=== PATIENT | male | born 1955 | race Caucasian/White ===

== ENCOUNTER 2020-06-26 10:38 | Outpatient (REF) | payer OTHER, SELFPAY | END 2020-06-26 10:39 | disposition home or self-care (01) | LOC: HO.LAB 10:38 | PROVIDERS: PCP Internal Medicine Medical Oncology; Visit Provider Internal Medicine | DX: Z20.822 Contact with and (suspected) exposure to COVID-19 (principal) | CPT/HCPCS: 36415; C9803; U0003 ==

== ENCOUNTER 2022-06-28 17:06 | Outpatient (REF) | payer OTHER, SELFPAY | END 2022-06-28 17:07 | disposition home or self-care (01) | LOC: HO.LNP 17:06 | PROVIDERS: Visit Provider Internal Medicine Medical Oncology | DX: L02.216 Cutaneous abscess of umbilicus (principal) | CPT/HCPCS: 87070; 87205 ==

== ENCOUNTER 2024-08-28 11:15 | Outpatient (REF) | payer OTHER, SELFPAY | END 2024-08-28 11:16 | disposition home or self-care (01) | LOC: HO.LNP 11:15 | PROVIDERS: Visit Provider Internal Medicine Medical Oncology | DX: R07.0 Pain in throat (principal) | CPT/HCPCS: 87070; 87147 ==

== ENCOUNTER 2024-12-18 11:45 | Outpatient (REF) | payer OTHER, SELFPAY ==
--- OUTSIDE RECORDS SUMMARY | 2024-12-18 07:00 | XMS_ITS ---
Author Organization Rusty Shaw III, MD Address [address] [address] Care Team Providers Care Insulation Batting Machine Operator Name Role Phone Rusty Shaw Primary Care Provider [phone] Allergies Allergen (clinical drug ingredient) Drug/Non Drug Allergy documented on EMR Reaction Allergy Type Onset Date Status Penicillin rash Drug Allergy Active Septra rash Drug Allergy Active REASON FOR VISIT growth on left side groin x 4 days Medications Medication SIG (Take, Route, Frequency, Duration) Notes Start Date End Date Status Lisinopril 40 MG TAKE 1 TABLET BY ZAINAB TH DAILY Active Clobetasol Propionate 0.05 % 1 application Externally Twice a day 04/19/2024 Active Atenolol 100 MG 1 tablet Orally Once a day 07/12/2024 Active hydrALAZINE HCl 10 MG 1 tablet with food Orally mornings 06/28/2024 Active Valsartan 80 MG 1 tablet Orally Once a day 08/28/2024 Active Doxycycline Hyclate 100 MG 1 capsule Ora lly twice a day for 10 days 12/18/2024 12/28/2024 Active Simvastatin 20 MG TAKE 1 TABLET BY ZAINAB TH DAILY IN THE EVENING Active Tart Li Advanced - Orally Active MegaRed [place]-3 Krill Oil 500 MG Orally Active Triamcinolone Acetonide 0.1 % 1 application Externally Twice a day 04/17/2023 Active Social History Tobacco Use: Social History Observation Description Date Details (start date - stop date) Never Smoker NA - NA Sex Assigned At : Social History Observation Description Sex Assigned At Male Tobacco Use/Smoking Question Answer Notes Patient is a nonsmoker Additional Findings: Tobacco Non-User Aggressive non-smoker Vital Signs Temperature 99.0 degrees Fahrenheit 12/19/19 25 Blood pressure systolic 170 mm Hg 12/19/19 25 Blood pressure diastolic 80 mm Hg 025 Heart Rate 56 /min 12/18/2024 Height 70 in 12/18/2024 Weight 213 lbs 12/18/2024 BMI 30.56 kg/m2 12/18/2024 Encounters Encounter Location Date Provider Diagnosis Rusty Shaw III, MD [address] [place] [address] [address] [place] [address] 12/18/2024 Rusty Shaw Mixed hyperlipidemia E78.2 and Abscess of groin, left L02.214 Assessments Encounter Date Diagnosis (ICD Code) Assessment Notes Treat ment Notes Treatment Clinical Notes 12/18/2024 Mixed hyperlipidemia (ICD-10 - E78.2) 12/18/2024 Abscess of groin, left (ICD-10 - L02.214) Plan Of Treatment Medication Medication Name Sig Start Date Stop Date Notes Lisinopril 40 MG TAKE 1 TABLET BY ZAINAB TH DAILY Clobetasol Propionate 0.05 % 1 applicati on Externally Twice a day 04/19/2024 Atenolol 100 MG 1 tablet Orally Once a day 07/12/2024 hydrALAZINE HCl 10 MG 1 tablet with food Orally mornings 06/28/2024 Valsartan 80 MG 1 tablet Orally Once a day 08/28/2024 Doxycycline Hyclate 100 MG 1 capsule Ora lly twice a day for 10 days 12/18/2024 12/28/2024 Simvastatin 20 MG TAKE 1 TABLET BY ZAINAB TH DAILY IN THE EVENING Tart Li Advanced - Orally MegaRed [place]-3 Krill Oil 50 0 MG Orally Triamcinolone Acetonide 0.1 % 1 applicat ion Externally Twice a day 04/17/2023 Pending Test Test Name Order Date Routine Culture 12/18/2024 Next Appt Details Follow Up: Monday, Reason: O V Provider Name:Rusty Shaw, 12/23/2024 01:15:00 PM, [address] [place] [address] [address], [place], [address], Provider Name:Rusty Shaw, 04/24/2025 10:00:00 AM, [address] [place] [address] [address], [facility] [place], [address], Progress Notes * Fareed ARMSTRONGDOB:1955 (69 yo M)Acc No.[id number]:12/18/2024 Progress Notes Patient: Fareed GARCIA Provider: Marshall Shaw MD :1955 A ge:69 Y S ex:Male Date:12/18/2024 Address:[address] [place] [address], [place], [id number] Subjective: * Chief Complaints: * 1 . Growth on left side groin x 4 days. * HPI: C OVID-19 Screening: Questions H ave you had any new onset fever, chills, cough, congestion, sore throat, shortness of breath, muscle aches? N o * ROS: G eneral/Constitutional: pain o nly normal aches and pains. C hills d enies.?Fatigue a dmits. F ever d enies. E NT: Decreased hearing d enies. R espiratory: Cough d enies. C ardiovascular: Chest pain with exertion d enies. D yspnea on exertion?denies. S hortness of breath d enies. G astrointestinal: Constipation d enies. D ecreased appetite d enies.?Diarrhea d enies. H eartburn d enies. N ausea d enies. R ectal bleeding?denies. V omiting d enies. H ematology: bruising d enies. p etechiae d enies. S wollen glands n one have been noted. G enitourinary: Frequent urination d enies. M usculoskeletal: Muscle aches d enies. P ainful joints d enies. S ciatica d enies. W eakness d enies. S kin: Itching d enies. R eren d enies. S kin lesion(s)?denies. N eurologic: Difficulty speaking d enies. D izziness d enies.?Headache d enies. L ow back pain d enies. P sychiatric: Depressed mood d enies. * Medical History: P ersonal history of pulmonary embolism, Arthritis of knee, gout, right foot April 2017, Hyperlipidemia, Hypertension, Overweight, Cataracts, Enlarged right testicle, ultrasound, The patient had a colonoscopy at the end of the previous year. He has been diagnosed with type 2 diabetes. He has been seeing a truck dispatcher for skin lesions.. * Surgical History: c olonoscopy, [facility], Dr. Carrillo 1999, colonoscopy, [facility], Dr. Santos 2015, Cataract surgery 07/04,08/04, No history . * Hospitalization/Major Diagno stic Procedure: N o history . * Family History: F ather: alive 94 yrs, Diabetes mellitus, diagnosed with DM. M other: 83 yrs, Advanced dementia, hyperthyroidism. C jayjay: alive. S on(s): alive. D aj(s): alive. Siblings: . 3 brother(s) . 1 son(s) , 2 daughter(s) - healthy. . He has 3 children who are alive and well. He has one healthy grandchild. He is not aware of any family history of mental illness. He is not aware of any family history of edition her substance abuse disorders. His brother Kyle November 2022 of pancreatic cancer. * Social History: T obacco Use: T obacco Use/Smoking P penny is a n onsmoker A dditional Findings: Tobacco Non-User A ggressive non-smoker H elias has been to [facility] for 35 years. They have 3 healthy children and 4 grandchildren. 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 The patient is still working and has been at the same job since 1999. He has reduced his red meat consumption. He lives with his and daughter. * Medications: T aking Simvastatin 20 MG Tablet TAKE 1 TABLET BY MOUTH DAILY IN THE EVENING , Taking Tart Li Advanced - Capsule Orally , Taking MegaRed [place]-3 Krill Oil 500 MG Capsule Orally , Taking Triamcinolone Acetonide 0.1 % Cream 1 application Externally Twice a day , Taking Clobetasol Propionate 0.05 % Cream 1 application Externally Twice a day , Taking Atenolol 100 MG Tablet 1 tablet Orally Once a day , Taking hydrALAZINE HCl 10 MG Tablet 1 tablet with food Orally mornings , Taking Valsartan 80 MG Tablet 1 tablet Orally Once a day , Taking Lisinopril 40 MG Tablet TAKE 1 TABLET BY MOUTH DAILY , Medication List reviewed and reconciled with the patient * Allergies: S eptra: rash, Penicillin: rash. Objective: * Vitals: H t: 70, Wt:213, BMI:30.56, BP:170/80, HR:56, Temp:99.0, Ht-cm: 177.8, Wt-k.62. * Examination: G eneral Examination: GENERAL APPEARANCE: p leasant, well nourished, well developed, in no acute distress, calm and relaxed. HEAD: a traumatic, normocephalic. EYES: e griselda, perrla, anicteric, conjugate. EARS: n ormal. NOSE: s eptum intact. ORAL CAVITY: n ormal, unremarkable. NECK/THYROID: n o jugular venous distention, no carotid bruit, thyroid normal. LYMPH NODES: n o enlarged lymph nodes,spleen normal. SKIN: n o suspicious lesions, anicteric. HEART: n o clicks, gallops, murmurs, or rubs, regular rhythm, S1, S2 normal, no s3, or vascular bruits. LUNGS: c lear to auscultation . BREASTS: no masses palpable bilaterally. ABDOMEN: b owel sounds normal, no ascites, no organomegaly, no mass. RECTAL EXAM: n ot examined. MUSCULOSKELETAL: e xtremities unremarkable, no clubbing, cyanosis or edema. PERIPHERAL PULSES: n ormal. NEUROLOGIC: a lert and oriented, cranial nerves 2-12 grossly intact, deep tendon reflexes 2+ symmetrical, motor strength normal upper and lower extremities, sensory exam intact. PSYCH: a lert, oriented. Assessment: * Assessment: 1. M ixed hyperlipidemia - E78.2 2 . A bscess of groin, left - L02.214 Plan: * Treatment: 2. A bscess of groin, left L AB: Routine Culture * Preventive Medicine: Counseling: C are goal follow-up plan: Counseling for abnormal BMI given Y es Above Normal BMI Follow-up D ietary management education, guidance, and counseling, Dietary needs education, Exercise promotion: strength training, Exercise promotion: stretching, Feeding regime, Giving encouragement to exercise, Lifestyle education regarding diet, Nutrition / feeding management, Nutrition therapy, Prescribed activity/exercise education, Prescribed diet education, Prescribed dietary intake, Special diet education, Weight monitoring , Intervention, Order not done: Medical or Other reason not done * Follow Up: M on (Reason: OV) * Images: * The named appointment provid er may or may not be the originator of this progress note, and it is not deemed complete until electronically signed by the appointment provider. Sign off status: Pending * Provider: Marshall Shaw MD Date: 12/18/2024 Generated for Joni davi/Justin/Axelsmitting on: 12/18/2024 02:12 PM EDT History and Physical Notes * HPI (History of Present Illness) Category Sub-Category Detail Notes COVID-19 Screening Questions Have you had any new onset fever, chills, cough, congestion, sore throat, shortness of breath, muscle aches?: No Examination Category Sub-Category Detail Notes General Examination GENERAL APPEARANCE: pleasant , well nourished, well developed, in no acute distress, calm and relaxed HEAD: atraumatic, normocep halic EYES: eomi, perrla, anicte ara, conjugate EARS: normal NOSE: septum intact NECK/THYROID: no jugular venous di stention, no carotid bruit, thyroid normal HEART: no clicks, gallops, murmurs, or rubs, regular rhythm, S1, S2 normal, no s3, or vascular bruits LUNGS: clear to auscultatio n ABDOMEN: bowel sounds normal, no ascites, no organomegaly, no mass NEUROLOGIC: alert and oriented, cranial nerves 2-12 grossly intact, deep tendon reflexes 2+ symmetrical, motor strength normal upper and lower extremities, sensory exam intact SKIN: no suspicious lesion s, anicteric PERIPHERAL PULSES: normal BREASTS: no masses palpable b ilaterally MUSCULOSKELETAL: extremities unremark able, no clubbing, cyanosis or edema LYMPH NODES: no enlarged lymph no diana,spleen normal RECTAL EXAM: not examined PSYCH: alert, oriented ORAL CAVITY: normal, unremarkable
== END 2024-12-18 11:46 | disposition home or self-care (01) ==
LOC: HO.LNP 11:45
PROVIDERS: Visit Provider Internal Medicine Medical Oncology
DX: L02.214 Cutaneous abscess of groin (principal)
CPT/HCPCS: 87070; 87147; 87205

== ENCOUNTER 2024-12-19 06:57 | Inpatient (IN) | payer OTHER, SELFPAY ==
--- OUTSIDE RECORDS SUMMARY | 2024-12-18 07:00 | XMS_ITS ---
Author Organization Rusty Shaw III, MD Address [address] [address] Care Team Providers Care Area Forester Name Role Phone Rusty Shaw Primary Care Provider Allergies Allergen (clinical drug ingredient) Drug/Non Drug [...] Tart Li Advanced - Orally Active MegaRed Miller-3 Krill Oil 500 MG Orally Active Triamcinolone [...] Date Provider Diagnosis Rusty Shaw III, MD [address] [place] [address] [address] [place] [id number] 12/18/2024 Rusty Shaw Mixed hyperlipidemia E78.2 and [...] EVENING Tart Li Advanced - Orally MegaRed Miller-3 Krill Oil 50 0 MG Orally Triamcinolone Acetonide 0.1 % 1 applicat ion Externally Twice a day 04/17/2023 Pending Test Test Name Order Date Routine Culture 12/18/2024 Next Appt Details Follow Up: Monday, Reason: O V Provider Name:Rusty Shaw, 12/23/2024 01:15:00 PM, [address] [place] [address] [address], [place], [id number], Provider Name:Rusty Shaw, 04/24/2025 10:00:00 AM, [address] [place] [address] [address], [facility] [place], [phone], Progress Notes * Fareed ARMSTRONGDOB:1955 (69 yo M)Acc No.[id number]:12/18/2024 Progress Notes Patient: Fareed GARCIA Provider: Marshall Shaw MD :1955 A ge:69 Y S ex:Male Date:12/18/2024 Address:[address] [place] [address], [place], [id number] Subjective: * Chief Complaints: * 1 . [...] 2 diabetes. He has been seeing a maintenance team leader for skin lesions.. * Surgical History: c olonoscopy, [facility], Dr. Carrillo 1999, colonoscopy, [facility], Dr. Santos 2015, Cataract surgery 07/04,08/04, [...] ggressive non-smoker H elias has been to [facility] for 35 years. They have 3 healthy children and 4 grandchildren. 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 The patient is still working and has been at the same job since 1999. He has reduced his red meat consumption. He lives with his and daughter. * Medications: T aking Simvastatin 20 MG Tablet TAKE 1 TABLET BY MOUTH DAILY IN THE EVENING , Taking Tart Li Advanced - Capsule Orally , Taking MegaRed Miller-3 Krill Oil 500 MG Capsule Orally , [...] Date: 12/18/2024 Generated for Joni davi/Justin/Axelsmitting on: 12/19/2024 08:00 AM EDT History and Physical Notes * HPI [...]
--- NOTE | ~2024-12-19 | CT_ITS ---
EXAMINATION: CT ABDOMEN PELVIS WITH IV CONTRAST HISTORY: left groin induration, c/f possible Vijay's COMPARISON: There are no prior studies for available comparison. TECHNIQUE: CT scan of the abdomen and pelvis was performed following administration of 85 mL Omnipaque 350 using standard departmental protocol. Coronal and sagittal reformatted images were generated and reviewed. Oral contrast material was not administered at the request of the referring physician. This CT exam was performed with one or more of the following dose reduction techniques: automated exposure control, adjustment of the mA and/or kV according to patient size, use of iterative reconstruction technique. DLP: 1184 mGy-cm FINDINGS: LOWER CHEST: The visualized lung bases are clear. There is no pleural effusion. CARDIOVASCULATURE: The heart is normal in size. There is no pericardial effusion. LIVER: The liver is normal in size and contour. No liver mass is identified. The hepatic and portal veins are patent. GALLBLADDER / BILE DUCTS: The gallbladder is unremarkable. There is no intra or extrahepatic biliary ductal dilatation. SPLEEN: The spleen is normal in size. No focal splenic lesion is identified. PANCREAS: The pancreas is unremarkable in appearance. ADRENAL GLANDS: Within normal limits. KIDNEYS/RETROPERITONEUM: No renal calculi are identified. There is no hydronephrosis. No renal masses are identified. LYMPH NODES: There is a 9 mm para-aortic lymph node. There are lymph nodes in the left inguinal region which are more notable for number than size. VASCULATURE: The abdominal aorta is normal in caliber. MESENTERY/PERITONEUM: No free fluid. No masses. There is no free intraperitoneal gas. STOMACH: The stomach is collapsed, limiting evaluation. SMALL BOWEL: The small bowel is normal in caliber. COLON: There is diverticulosis of the descending and sigmoid colon, without evidence of diverticulitis. APPENDIX: Normal. URINARY BLADDER/PELVIC ORGANS: The urinary bladder is unremarkable. The prostate is normal in size. BONES / SOFT TISSUES: There is marked infiltration of the subcutaneous fat of the anteromedial left thigh with associated skin thickening, consistent with cellulitis. There is no associated loculated fluid collection or soft tissue gas. There are surgical clips in the scrotum. No induration of the scrotal fat is seen. There is no soft tissue gas within the scrotum. CT/CT abdomen pelvis w IV con IMPRESSION: Findings consistent with cellulitis involving the anteromedial proximal left thigh. No associated loculated fluid collection or soft tissue gas. Electronically signed by: Rusty Nation MD 12/19/2024 10:07 AM EDT
[2024-12-19 07:01] VITALS: BP 143/56; PULSE 59; RESP 20; TEMP 36.6; O2SAT 99; BMI 29.7
[2024-12-19 07:41] VITALS: BP 137/65; PULSE 60; RESP 16; O2SAT 96
--- NOTE | 2024-12-19 08:04 | ED.GENADULT ---
HPI - General Adult General Chief complaint: Skin/Abscess/Foreign Body Stated complaint: sent by Rusty Shaw? has a cyst on left leg Time Seen by Provider: 12/19/24 08:04 Source: patient, family (), RN notes reviewed and old records reviewed Mode of arrival: ambulatory Limitations: no limitations History of Present Illness ED Provider: Geoff [facility] narrative: Patient is a 69-year-old male presenting to the emergency department with complaint of cyst/abscess to left upper leg/groin area. Saw Dr. Shaw yesterday who started him on doxycycline. He states since that time, the erythema has spread significantly. reports one episode of a low-grade fever. Also notes that they scanned the area of erythema with a heat sensing thermometer and it was over [address] Shaw was able to express some drainage at the office yesterday. Patient states he initially noted the area of erythema and swelling on Monday. Denies history of DM. Denies severe pain. MD complaint: abscess Onset (ago): day(s) Related Data Allergies Allergy/AdvReac Type Severity Reaction Status Date / Time Penicillins Allergy Rash Verified 12/19/24 07:04 Review of Systems Review of Systems: As per HPI Yes all other systems are reviewed and are negative Constitutional: Constitutional: Reports as per HPI PMFSH Social History Social History Smoked in Last 30 Days: No Use of substances other than those prescribed or required for medical reasons: No Advance Directives: No Advance Directives Information Provided: Yes Physical Exam ED Vital Signs: Vital Signs - 24 hr 12/19/24 07:01 12/19/24 07:41 12/19/24 10:40 Temperature 97.8 F 97.9 F Pulse Rate 59 60 Respiratory Rate 20 16 Blood Pressure 143/56 H 137/65 Pulse Oximetry 99 96 Oxygen Delivery Method Room Air BMI result Body Mass Index 29.7 Vital signs have been reviewed and appear to be correct. Blood pressure normal. Heart rate normal. Respiratory rate normal. Temperature normal. Oxygen saturation normal. Const General: cooperative, healthy appearing and no acute distress Orientation/consciousness: oriented to person, oriented to place, oriented to time and patient oriented x3 Limitations: no limitations HENMT Head: Yes normocephalic and Yes atraumatic Ears: external ears normal General nose exam: Normal external nose present Face and sinus: Yes face symmetric Mouth: oropharynx normal and moist mucous membranes Throat: Yes uvula midline Eyes Pupils: Equal, round and reactive pupils present Neck Neck: Yes normal visual inspection and Yes supple Resp Effort & Inspection: normal respiratory effort and able to speak in complete sentences Auscultation: clear to auscultation bilaterally Cardio Rate: regular rate Rhythm: regular rhythm Heart sounds: S1 normal heart sound present and S2 normal heart sound present GI Palpation (GI): Soft to palpation and nontender Auscultation: normoactive bowel sounds Other: Large area of induration, erythema and warmth to left groin with erythema and warmth extending to left upper leg, see photo General: Yes no CVA tenderness Back/Spine/Pelvis Back: no CVA tenderness Skin General skin exam: elasticity normal and turgor normal Neuro General: oriented to person, oriented to place, oriented to time, patient oriented x3, moves all extremities, no focal motor deficits and CN's II-XI intact bilaterally Cranial nerves: Yes Equal, round and reactive pupils present Cognition (Neuro): normal cognition Extrem General: Yes full ROM, Yes no pedal edema and Yes no calf tenderness Psych Mental Status: mental status grossly normal Affect: normal affect Thought process: Normal thought process present Medications Administered Discontinued Medications Generic Name Dose Route Start Last Admin Trade Name Freq PRN Reason Stop Dose Admin Vancomycin HCl 2,000 mg in 500 mls @ 250 mls/hr 12/19/24 08:45 12/19/24 09:22 Vancomycin/Ns IV 12/19/24 10:44 250 mls/hr ONCE ONE Administration Iohexol 100 ml 12/19/24 09:36 12/19/24 09:41 Iohexol 350 Mg/Ml 100 Ml Infus..Btl IV 12/19/24 09:37 85 ml ONCE ONE Administration Medical Decision Making Medical Decision Making [facility] Narrative: Patient is a 69-year-old male presenting to the emergency department with complaint of cyst/abscess to left upper leg/groin area. On exam patient is awake, A+Ox3, VS WNL, afebrile, normal neurological exam without focal deficits, physical exam findings as above. Given reported symptoms and physical exam findings, initial differential includes but is not limited to abscess, cellulitis, deep tissue infection, Vijay's. Labs notable for leukocytosis with left shift, normal lactic. CT notable for findings consistent with cellulitis, no evidence of Vijay's. My interpretation is in agreement with the radiologist's interpretation. IV vanco ordered. Dr. Shaw saw patient in the ED, states cellulitis is significantly worse than yesterday, states he was able to express some purulent/caseous discharge. States he sent a wound cx as well. Case discussed with Dr. Negron who accepts admission for cellulitis. Differential Diagnosis Differential Diagnoses: The differential diagnosis associated with the presentation includes As per [facility] Admission/Observation Consideration of admission/observation: Escalation of care including admission/observation considered Consult Healthcare Provider Management of the patient was discussed with: Hospitalist Lab Data [facility] Lab Attestation statement: I reviewed the patient's lab results. As per [facility] 12/19/24 08:56 12/19/24 08:56 Labs: Lab Results 12/19/24 Range/Units 08:56 WBC 11.6 H (4.8-10.8) X10*3/uL RBC 4.10 L (4.60-5.80) X10*6/uL Hgb 12.2 L (14.0-18.0) g/dl Hct 35.3 L (42.0-52.0) % MCV 86.1 (80.0-98.0) fL MCH 29.8 (27.0-33.0) pg MCHC 34.6 (31.0-36.0) g/dl RDW 12.9 (11.0-16.0) % Plt Count 197 (160-400) X10*3/uL MPV 10.6 (9.4-12.4) fL Immature Gran % (Auto) 0.3 (0.0-0.4) % Neut % (Auto) 87.2 H (45-73) % Lymph % (Auto) 5.2 L (20-40) % Hamblen % (Auto) 6.8 (2-11) % Eos % (Auto) 0.3 (0-4) % Baso % (Auto) 0.2 (0-2) % Lymph # (Auto) 0.6 L (1.2-4.9) X10*3/uL Hamblen # (Auto) 0.8 (0.1-1.2) X10*3/uL Eos # (Auto) 0.0 (0.0-0.4) X10*3/uL Baso # (Auto) 0.0 (0.0-0.2) X10*3/uL Abs Immat Gran (auto) 0.04 H (0.00-0.03) X10*3/uL Absolute Neuts (auto) 10.1 H (2.0-8.3) x10*3/uL Absolute Nucleated RBC 0.000 (0.0-0.012) X10*3/uL Nucleated RBC % (auto) 0.0 (0.0-0.2) /100WBC Sodium 136 (135-145) mmol/L Potassium 3.7 (3.3-5.1) mmol/L Chloride 103 (96-108) mmol/L Carbon Dioxide 26 (22-29) mmol/L Anion Gap 11 L (12-20) BUN 22 H (9-16) mg/dL Creatinine 1.07 (0.5-1.4) mg/dL Estim Creat Clear Calc 78.3 Estimated GFR > 60 Random Glucose 112 (60-115) mg/dL Lactic Acid 0.6 (0.5-2.0) mmol/L Calcium 8.9 (8.4-10.2) mg/dL Total Bilirubin 1.3 H (0.0-1.0) mg/dL AST 17 (5-37) U/L ALT 12 (0-40) U/L Alkaline Phosphatase 66 (39-117) U/L Total Protein 7.4 (6.5-8.0) g/dL Albumin 3.8 (3.5-5.0) g/dL Independent Interpretation I performed an independent interpretation of an: CT Scan Interpretation: CT abdomen pelvis shows findings consistent with cellulitis of left groin, no evidence of Vijay's Radiology Impression Discussion of test interpretation with radiology: I have reviewed the radiologist's reading. Radiologist Impression: CT/CT abdomen pelvis w IV con IMPRESSION: Findings consistent with cellulitis involving the anteromedial proximal left thigh. No associated loculated fluid collection or soft tissue gas. Independent Historian Clinical information obtained from an independent historian. History obtained from or confirmed by: Spouse External Record Review External record reviewed: Inpatient record, Office record and Outpatient record Prescription Management I considered prescription management with: Antibiotic Critical Care Time Critical Care Time Critical Care Time: Yes Total Critical Care Time: 42 Attestation: I have personally provided critical care time exclusive of time spent on separately billable procedures. Time includes review of lab data, radiology results, discussion with consultants, and monitoring for potential decompensation. Intervention performed as documented. Discharge Plan Discharge Clinical Impression: Cellulitis of groin, left Patient Disposition: Admitted As Inpatient Print Language: Kuwaiti
--- NOTE | 2024-12-19 08:35 | PC.NURSE ---
Pt roomed changed and placed on 1/2 Monitor- VSS right groin with large red area with center scabbed opening. NAD A&O X4 No other symptoms, awaiting procedure by provider.
[2024-12-19 09:06] LABS: MANUAL DIFF FLAG NO
[2024-12-19 09:12] LABS: Hematocrit 35.3 % (42.0-52.0); Hemoglobin 12.2 g/dl (14.0-18.0); Imm Gran Abs Auto 0.04 X10*3/uL (0.00-0.03); Imm Gran Pct Auto 0.3 % (0.0-0.4); Lymphocytes Absolute Auto 0.6 X10*3/uL (1.2-4.9); Mean Corpuscular HGB Conc 34.6 g/dl (31.0-36.0); Mean Corpuscular Hemoglobin 29.8 pg (27.0-33.0); Mean Corpuscular Volume 86.1 fL (80.0-98.0); NRBC Abs Auto 0.000 X10*3/uL (0.0-0.012); NRBC Pct Auto 0.0 /100WBC (0.0-0.2); Platelet Count 197 X10*3/uL (160-400); Red Blood Count 4.10 X10*6/uL (4.60-5.80); White Blood Count 11.6 X10*3/uL (4.8-10.8)
[2024-12-19] MEDS: vancomycin/NS 2,000 MG/500 ML PLAST..BAG 250 MG IV (09:22)
[2024-12-19 09:24] LABS: Alanine Aminotransferase 12 U/L (0-40); Albumin Level 3.8 g/dL (3.5-5.0); Alkaline Phosphatase 66 U/L (39-117); Anion Gap 11 (12-20); Aspartate Amino Transferase 17 U/L (5-37); Blood Urea Nitrogen 22 mg/dL (9-16); Calcium 8.9 mg/dL (8.4-10.2); Carbon Dioxide 26 mmol/L (22-29); Chloride 103 mmol/L (96-108); Creatinine Clr Calc Pharmacy 78.3; Estimated Glomerular Filt Rate > 60; Potassium 3.7 mmol/L (3.3-5.1); Sodium 136 mmol/L (135-145); Total Protein 7.4 g/dL (6.5-8.0)
[2024-12-19] MEDS: iohexoL 350 MG/ML 100 ML INFUS..BTL IV (09:41)
[2024-12-19 10:40] VITALS: TEMP 36.6
--- NOTE | 2024-12-19 12:13 | PM.IMHP ---
History of Present Illness Date of Service: 12/19/24 Attending physician on admission: William Macario Chief Complaint: Left groin infection Fareed Craft is a 69 y/o man past medical history significant for hyperlipidemia and essential hypertension presents to the emergency department complaining of left groin pain and redness. He noticed this 4 days ago. He also reported suggestive fever and chills. The area is now open and spontaneously and mild quantity of fluids. He did not report headache, dizziness, palpitations, chest pain, shortness on breath, nausea vomiting or diarrhea. He denied tobacco smoking, alcohol abuse or illicit drug use. He has a history of tick bite long time ago but not recently. He received a prescription for doxycycline recently. A culture of the left thigh lesion was obtained: Romero stain showed 3+ polys 2+, epithelial cells, 4+ Gram-negative rods and 2+ Gram-positive cocci. In the ED, he was found to have stable vital signs. Blood workup is remarkable for leukocytosis, 11.6. There is no lactic acidosis. Hemoglobin 12.2 and platelets 197. There are no electrolyte imbalances. Anion gap is 11 and BUN 22. AST is are normal except for mildly elevated total bilirubin. Abdominal pelvis CT scan with IV contrast showed finding consistent with cellulitis involving the anteromedial proximal left thigh without loculated fluid collection or soft tissue gas. ED tx: Vancomycin 2 g Review of Systems Review of Systems: All 12 systems were reviewed and normal except as noted in HPI. [facility] Medical History (Updated 12/19/24 @ 13:00 by William Macario MD) Hyperlipidemia Essential hypertension Social History Smoked in Last 30 Days: No Use of substances other than those prescribed or required for medical reasons: No Advance Directives: No Advance Directives Information Provided: Yes Meds Allergies Allergy/AdvReac Type Severity Reaction Status Date / Time Penicillins Allergy Rash Verified 12/19/24 07:04 Active Medications: Current Medications Acetaminophen (Acetaminophen 325 Mg Tablet) 975 mg PO Q6H PRN PRN Reason: Pain, Mild 1-3,fever,headache Calcium Carbonate (Calcium Carbonate 750 Mg Tab.Chew) 750 mg PO Q4H PRN PRN Reason: Heartburn Enoxaparin Sodium (Enoxaparin Sodium 40 Mg/0.4 Ml Syringe) 40 mg SUBCUT Q24H DALIA Doxycycline Hyclate 100 mg/ (Sodium Chloride) 250 mls @ 166.67 mls/hr IV Q12H DALIA Magnesium Hydroxide (Milk Of Magnesia 30 Ml Oral.Susp) 30 ml PO DAILY PRN PRN Reason: Constipation Melatonin (Melatonin 3 Mg Tablet) 6 mg PO BEDTIME PRN PRN Reason: Insomnia Sodium Chloride (0.9 % Sodium Chloride Flush 3 Ml Syringe) 3 ml IVFLUSH QSHIFT DALIA Home Medications ?Medication ?Instructions ?Recorded ?Confirmed ?Last Taken ?Type atenolol 100 mg tablet 100 mg PO DAILY 12/19/24 12/19/24 12/19/24 History doxycycline hyclate 100 mg tablet 100 mg PO BID 12/19/24 12/19/24 12/19/24 History krill oil 500 mg capsule 500 mg PO DAILY 12/19/24 12/19/24 Unknown History lisinopril 40 mg tablet 40 mg PO DAILY 12/19/24 12/19/24 12/19/24 History simvastatin 20 mg tablet 20 mg PO BEDTIME 12/19/24 12/19/24 12/18/24 History valsartan 80 mg tablet 80 mg PO DAILY 12/19/24 12/19/24 12/19/24 History vit C 30 mg-s.li 250 mg-celery 1 cap PO BEDTIME 12/19/24 12/19/24 Unknown History seed 75 mg-grape seed extrt capsule (Tart Li) Physical Exam Vital Signs and Narrative: Vital Signs: Last Vital Signs Temp 97.9 F 12/19/24 10:40 Pulse 60 12/19/24 07:41 Resp 16 12/19/24 07:41 BP 137/65 12/19/24 07:41 Pulse Ox 96 12/19/24 07:41 O2 Del Method Room Air 12/19/24 07:01 BMI result Body Mass Index 29.7 Constitutional - Awake and Alert, No apparent distress. Pleasant. Cooperative. Afebrile. HEENT - PER, EOMI Heart - RRR, (+) murmur. Lungs - Normal lung expansion, Normal respiratory effort, No respiratory distress, CTA bilaterally Abdomen - NT / ND; +BS; No rebound or guarding - left groin: Indurated, open blister noted measuring approximately 2 cm without active drainage. Surrounding skin is erythematous and edematous without active bleeding. See picture below. Extremities - minimal pitting edema to the lower extremities. Musculoskeletal - Normal inspection, normal ROM Skin - Warm/Dry Neurological - Alert & oriented x3. Moving all extremities spontaneously. Normal speech. Psychological - Appropriate affect Results Labs 12/19/24 08:56 12/19/24 08:56 Labs: Laboratory Results - last 24 hr 12/19/24 08:56 MCV 86.1 MCH 29.8 MCHC 34.6 RDW 12.9 Plt Count 197 MPV 10.6 Immature Gran % (Auto) 0.3 Neut % (Auto) 87.2 H Lymph % (Auto) 5.2 L Beckham % (Auto) 6.8 Eos % (Auto) 0.3 Baso % (Auto) 0.2 Lymph # (Auto) 0.6 L Beckham # (Auto) 0.8 Eos # (Auto) 0.0 Baso # (Auto) 0.0 Abs Immat Gran (auto) 0.04 H Absolute Neuts (auto) 10.1 H Absolute Nucleated RBC 0.000 Nucleated RBC % (auto) 0.0 Anion Gap 11 L Estim Creat Clear Calc 78.3 Estimated GFR > 60 Random Glucose 112 Lactic Acid 0.6 Calcium 8.9 Total Bilirubin 1.3 H AST 17 ALT 12 Alkaline Phosphatase 66 Total Protein 7.4 Albumin 3.8 Imaging Radiologist's Impressions: Impressions Abdomen/Pelvis CT 12/19/24 08:30 IMPRESSION: Findings consistent with cellulitis involving the anteromedial proximal left thigh. No associated loculated fluid collection or soft tissue gas. Electronically signed by: Rusty Nation MD 12/19/2024 10:07 AM EDT Assessment and Plan (1) Cellulitis of groin, left: Status: Acute (2) Leukocytosis: Qualifiers: Leukocytosis type: unspecified Qualified Code(s): D72.829 - Elevated white blood cell count, unspecified Status: Acute Plan Fareed Craft is a 69 y/o man admitted with: Left groin cellulitis. Admit to hospitalist service. Continue empiric IV antibiotic therapy with doxycycline and vancomycin. Left groin gram stain (December 18): 3 + polys, 4+ Gram-negative rods, 2+ Gram-positive cocci. Will add doxycycline for tick disease coverage. Allergic to penicillin. Tick disease panel. Continue to monitor WBC count. Blood cultures obtained -will follow results. Will follow final left groin culture results. Essential hypertension. Continue lisinopril, atenolol and losartan Hyperlipidemia. Continue statin. (+) murmur. Follow-up as an outpatient.. DVT prophylaxis: Lovenox Code status: Full Patient will need hospitalization for at least 2 midnights for IV antibiotic therapy. Quality Stroke Does the patient have a stroke diagnosis?: No VTE Prior VTE?: No VTE Risk Level:: Medical - moderate - high VTE Device Contraindication: Treatment Not Indicated VTE Drug Contraindication: N/A - Med Ordered
--- NOTE | 2024-12-19 12:23 | PHA.MEDREC ---
Pharmacy Consult ? Medication Reconciliation Pharmacy has completed the medication reconciliation. Patient had list of medicaiton that matched claim history. Patient reports taking OTC Krill Oil and tart espinoza, but does not need them inpatient. Lorri Jose, PharmD
[2024-12-19 19:25] VITALS: BP 168/71; PULSE 64; RESP 16; TEMP 38.1; O2SAT 99
[2024-12-19 21:12] VITALS: TEMP 37.6
[2024-12-19 22:12] VITALS: RESP 16
--- NOTE | 2024-12-19 22:18 | PC.NURSE ---
Pt resting comfortably in bed, call gregg in reach and pt understands use.
[2024-12-20] MEDS: 0.9 % Sodium Chloride Flush 3 ML SYRINGE IVFLUSH ×3 (00:45→16:51)
[2024-12-20 05:47] VITALS: BP 141/65; PULSE 60; RESP 16; TEMP 37.7; O2SAT 97
[2024-12-20 06:44] LABS: MANUAL DIFF FLAG NO
[2024-12-20 06:58] LABS: Hematocrit 37.3 % (42.0-52.0); Hemoglobin 12.4 g/dl (14.0-18.0); Imm Gran Abs Auto 0.06 X10*3/uL (0.00-0.03); Imm Gran Pct Auto 0.5 % (0.0-0.4); Lymphocytes Absolute Auto 0.6 X10*3/uL (1.2-4.9); Mean Corpuscular HGB Conc 33.2 g/dl (31.0-36.0); Mean Corpuscular Hemoglobin 29.0 pg (27.0-33.0); Mean Corpuscular Volume 87.1 fL (80.0-98.0); NRBC Abs Auto 0.000 X10*3/uL (0.0-0.012); NRBC Pct Auto 0.0 /100WBC (0.0-0.2); Platelet Count 191 X10*3/uL (160-400); Red Blood Count 4.28 X10*6/uL (4.60-5.80); White Blood Count 11.4 X10*3/uL (4.8-10.8)
[2024-12-20 07:11] LABS: Anion Gap 11 (12-20); Blood Urea Nitrogen 15 mg/dL (9-16); Calcium 8.4 mg/dL (8.4-10.2); Carbon Dioxide 26 mmol/L (22-29); Chloride 104 mmol/L (96-108); Creatinine Clr Calc Pharmacy 98.6; Estimated Glomerular Filt Rate > 60; Potassium 4.1 mmol/L (3.3-5.1); Sodium 137 mmol/L (135-145)
--- NOTE | 2024-12-20 07:28 | PC.NURSE ---
Patient is a 69 y/o man past medical history significant for hyperlipidemia and essential hypertension presents to the emergency department complaining of left groin pain and redness. He noticed this 4 days ago. Patient alert and oriented. Lungs clear bilat. Respirations even and non-labored. Abdomen soft, non-tender with positive bowel sounds. Cellulitis noted to left groin area with an open area surround by purple tissue and large area of redness surrounding. Positive pedal pulses with no edema noted.
[2024-12-20 08:53] VITALS: BMI 29.6
[2024-12-20 08:59] VITALS: BP 178/75; PULSE 63; RESP 17; TEMP 36.1; O2SAT 99
--- NOTE | 2024-12-20 11:10 | HO.WOUND ---
Wound Consult: Initial 69yr old?male admitted to [facility] on 12/19/24- See progress notes and H&P for detailed history.? Wound consult placed for Left Groin.? Patient agreeable to assessment and photo documentation.? Patient reports no improvment in wound appearnace at this time. Left Groin Etiology: ??Cellulitis Present on Admission Wound Bed:moist epidermal sloughing revealing red puple wound bed - swelling noted Drainage / Odor: pale yellow drainage noted on dressing Edges: ? irregular Juliana wound: ?red erythema, swelling warmth and induration, no fluctuance noted Pain: pain reported Goals of Treatment: ? Moist wound healing and moisture management Recommendations: Left Groin - Gently cleanse with PH balanced wipe, pat dry. Apply layer of xeroform, cover with ABD pad and mesh underwear. Change daily. Defer to surgery to assess for fluid collection on imaging. Re-consult wound care Nurse for wound deterioration or wound changes.
--- NOTE | 2024-12-20 11:27 | P.CONGS_ITS ---
History of Present Illness Consult details Consult date: 12/20/24 <Kathy Castellano PA-C Last Filed: 12/20/24 11:40> Reason for consult: wound care <CARMITA Soto Last Filed: 12/20/24 11:40> Requesting physician: Jordyn Spencer <CARMITA Soto Last Filed: 12/20/24 11:40> Narrative: 69 year old male with PMH significant for hyperlipidemia and essential hypertension who presented to the ED complaining of left groin pain and redness. This began 4-5 days ago. He saw Dr. Shaw his PCP a couple of days after and he was started on doxycycline. The redness and pain continued to worsen and he developed grade fever and chills. He therefore presented to the ED for evaluation. He denies nausea, vomiting, diarrhea, malaise. Work up in the ED was significant for a leukocytosis. CT scan showed thickening of the subcutaneous tissues of the anteromedial proximal left thigh without fluid collection or soft tissue gas. General surgery was consulted for the left groin cellulitis/abscess <CARMITA Soto Last Filed: 12/20/24 11:40> Review of Systems 2 Review of Systems: Yes all other systems are reviewed and are negative < Kathy Castellano PA-C Last Filed: 12/20/24 11:40> [facility] Past Medical History Medical History: Medical History (Updated 12/19/24 @ 13:00 by William Macario MD) Hyperlipidemia Essential hypertension <CARMITA Soto Last Filed: 12/20/24 11:40> Social History Social History: Social History Household Members: Spouse and Children Housing: House Do you presently have visiting nurse or other home services: No Patient Tobacco Use Status: Never used Tobacco <CARMITA Soto Filed: 12/20/24 11:40> Meds Allergies/Adverse reactions: Allergies Allergy/AdvReac Type Severity Reaction Status Date / Time Penicillins Allergy Rash Verified 12/19/24 07:04 <CARMITA Soto Last Filed: 12/20/24 11:40> Active Medications: Current Medications Acetaminophen (Acetaminophen 325 Mg Tablet) 975 mg PO Q6H PRN PRN Reason: Pain, Mild 1-3,fever,headache Last Admin: 12/19/24 19:28 Dose: 975 mg Atenolol (Atenolol 100 Mg Tablet) 100 mg PO DAILY [facility]; Protocol Last Admin: 12/20/24 09:11 Dose: 100 mg Atorvastatin Calcium (Atorvastatin Calcium 10 Mg Tablet) 10 mg PO DAILY [facility] Last Admin: 12/20/24 08:29 Dose: 10 mg Calcium Carbonate (Calcium Carbonate 750 Mg Tab.Chew) 750 mg PO Q4H PRN PRN Reason: Heartburn Enoxaparin Sodium (Enoxaparin Sodium 40 Mg/0.4 Ml Syringe) 40 mg SUBCUT Q24H [facility] Last Admin: 12/20/24 08:29 Dose: 40 mg Doxycycline Hyclate 100 mg/ (Sodium Chloride) 250 mls @ 166.67 mls/hr IV Q12H [facility] Last Infusion: 12/20/24 02:13 Dose: Infused Lisinopril (Lisinopril 40 Mg Tablet) 40 mg PO DAILY [facility]; Protocol Last Admin: 12/20/24 08:29 Dose: 40 mg Magnesium Hydroxide (Milk Of Magnesia 30 Ml Oral.Susp) 30 ml PO DAILY PRN PRN Reason: Constipation Melatonin (Melatonin 3 Mg Tablet) 6 mg PO BEDTIME PRN PRN Reason: Insomnia Sodium Chloride (0.9 % Sodium Chloride Flush 3 Ml Syringe) 3 ml IVFLUSH QSHIFT [facility] Last Admin: 12/20/24 08:07 Dose: 3 ml Valsartan (Valsartan 80 Mg Tablet) 80 mg PO DAILY [facility]; Protocol Last Admin: 12/20/24 09:11 Dose: 80 mg <Kathy Castellano PA-C - Last Filed: 12/20/24 11:40> Home medications: Home Medications ?Medication ?Instructions ?Recorded ?Confirmed ?Last Taken ?Type atenolol 100 mg tablet 100 mg PO DAILY 12/19/2404/0512/19/24 History doxycycline hyclate 100 mg tablet 100 mg PO BID 12/19/24 12/19/24 History krill oil 500 mg capsule 500 mg PO DAILY 12/19/2404/05 Unknown History lisinopril 40 mg tablet 40 mg PO DAILY 12/19/2412/1012/19/24 History simvastatin 20 mg tablet 20 mg PO BEDTIME 12/19/2412/18/24 History valsartan 80 mg tablet 80 mg PO DAILY 12/19/2412/1012/19/24 History vit C 30 mg-s.li 250 mg-celery 1 cap PO BEDTIME 12/19/24 Unknown History seed 75 mg-grape seed extrt capsule (Tart Li) <Kathy Castellano PA-C Last Filed: 12/20/24 11:40> Physical Exam 2 Vital Signs: Vital Signs: Last Vital Signs Temp 97 F 12/20/24 08:59 Pulse 63 12/20/24 08:59 Resp 17 12/20/24 08:59 BP 178/75 H 12/20/24 08:59 Pulse Ox 99 12/20/24 08:59 O2 Del Method Room Air 12/20/24 08:59 BMI result Body Mass Index 29.6 <Kathy Castellano PA-C Last Filed: 12/20/24 11:40> Const: General: comfortable, no acute distress and alert <Kathy Castellano PA-C Last Filed: 12/20/24 11:40> Orientation/consciousness: patient oriented x3 <Kathy Castellano PA-C Last Filed: 12/20/24 11:40> Resp: Effort & Inspection: normal respiratory effort <Kathy Castellano PA-C Last Filed: 12/20/24 11:40> Skin: Other: left groin/upper thigh with fluctuant collection of medially with overlying necrosis of skin, mild surrounding erythema (improved from admission images) <Kathy Castellano PA-C Last Filed: 12/20/24 11:40> Neuro: General: patient oriented x3 <Kathy Castellano PA-C Last Filed: 12/20/24 11:40> Results Labs Result diagrams: 12/20/24 06:34 12/20/24 06:34 <CARMITA Soto Last Filed: 12/20/24 11:40> Labs: Abnormal lab results 12/20/24 Range/Units 06:34 WBC 11.4 H (4.8-10.8) X10*3/uL RBC 4.28 L (4.60-5.80) X10*6/uL Hgb 12.4 L (14.0-18.0) g/dl Hct 37.3 L (42.0-52.0) % Immature Gran % (Auto) 0.5 H (0.0-0.4) % Neut % (Auto) 85.3 H (45-73) % Lymph % (Auto) 5.2 L (20-40) % Lymph # (Auto) 0.6 L (1.2-4.9) X10*3/uL Abs Immat Gran (auto) 0.06 H (0.00-0.03) X10*3/uL Absolute Neuts (auto) 9.7 H (2.0-8.3) x10*3/uL Anion Gap 11 L (12-20) Short CBC 12/20/24 Range/Units 06:34 WBC 11.4 H (4.8-10.8) X10*3/uL Hgb 12.4 L (14.0-18.0) g/dl Hct 37.3 L (42.0-52.0) % Plt Count 191 (160-400) X10*3/uL BMP 12/20/24 06:34 Sodium 137 Potassium 4.1 Chloride 104 Carbon Dioxide 26 BUN 15 Creatinine 0.85 Calcium 8.4 All other labs normal. <Kathy Castellano PA-C - Last Filed: 12/20/24 11:40> Imaging Abdomen CT scan report/results: report reviewed and image reviewed <Kathy Castellano PA-C - Last Filed: 12/20/24 11:40> Assessment and Plan (1) Cellulitis of groin, left: Status: Acute <Kathy Castellano PA-C - Last Filed: 12/20/24 11:40> 69-year-old male with a 69-year-old male with redness, induration and fluctuance just below the groin on the medial thigh Consistent with abscess CAT scan did not show fluid collection However, in view of the fluctuance and worsening redness, proceeded with the I&D at bedside under local anesthesia Large amounts of pus was drained Packing applied Cultures taken Dressings placed Follow up on cultures, antibiotics Seen and examined independently We will follow <Neymar Bhat MD - Last Filed: 12/20/24 13:03> 69 year old male with PMH significant for hyperlipidemia and essential hypertension who presented to the ED complaining of left groin pain and redness for 4-5 days admitted with left groin cellulitis. On examination this morning, there is a fluctuant area suggestive of abscess with overlying skin changes suggestive of skin necrosis. Patient unfortunately just ate lunch. Will proceed with bedside I&D with local. Will make NPO at midnight incase any further surgical intervention/debridement in OR tomorrow is necessary. Patient is comfortable with plan. Will return for procedure. Cont IV abx. <Kathy Castellano PA-C - Last Filed: 12/20/24 11:40> Procedures Date of Service Date of Service: 12/20/24 <Kathy Castellano PA-C - Last Filed: 12/20/24 11:40> 12/20/24 <Neymar Bhat MD - Last Filed: 12/20/24 13:03>
--- NOTE | 2024-12-20 11:46 | HO.PM.IMPN ---
Subjective Subjective Date of Service: 12/20/24 Interval History: Seen and examined this morning Follow-up for left groin cellulitis Patient reports erythema beginning to improve; no fevers Review of Systems Review of Systems: Yes all other systems are reviewed and are negative Constitutional Constitutional: Denies chills and Denies fever(s) Physical Exam Vital Signs: Vital Signs: Last Vital Signs Temp 97 F 12/20/24 08:59 Pulse 63 12/20/24 08:59 Resp 17 12/20/24 08:59 BP 178/75 H 12/20/24 08:59 Pulse Ox 99 12/20/24 08:59 O2 Del Method Room Air 12/20/24 08:59 BMI result Body Mass Index 29.6 Const: General: cooperative, comfortable, no acute distress, alert and awake Nutritional Appearance: average body habitus Orientation/consciousness: patient oriented x3 Resp: Effort & Inspection: normal respiratory effort, able to speak in complete sentences, no respiratory distress and no use of accessory muscles Cardio: Rate: regular rate GI: Inspection: No distended Palpation (GI): Soft to palpation and nontender Neuro: General: patient oriented x3, moves all extremities and CN's II-XI intact bilaterally Objective Data Active Medications Acetaminophen (Acetaminophen 325 Mg Tablet) 975 mg PO Q6H PRN PRN Reason: Pain, Mild 1-3,fever,headache Last Admin: 12/19/24 19:28 Dose: 975 mg Documented By: MELVIN Atenolol (Atenolol 100 Mg Tablet) 100 mg PO DAILY [facility]; Protocol Last Admin: 12/20/24 09:11 Dose: 100 mg Documented By: DHIRAJ Atorvastatin Calcium (Atorvastatin Calcium 10 Mg Tablet) 10 mg PO DAILY [facility] Last Admin: 12/20/24 08:29 Dose: 10 mg Documented By: EUGENIO Calcium Carbonate (Calcium Carbonate 750 Mg Tab.Chew) 750 mg PO Q4H PRN PRN Reason: Heartburn Enoxaparin Sodium (Enoxaparin Sodium 40 Mg/0.4 Ml Syringe) 40 mg SUBCUT Q24H [facility] Last Admin: 12/20/24 08:29 Dose: 40 mg Documented By: EUGENIO Doxycycline Hyclate 100 mg/ (Sodium Chloride) 250 mls @ 166.67 mls/hr IV Q12H [facility] Last Admin: 12/20/24 11:37 Dose: 166.67 mls/hr Documented By: DHIRAJ Lisinopril (Lisinopril 40 Mg Tablet) 40 mg PO DAILY [facility]; Protocol Last Admin: 12/20/24 08:29 Dose: 40 mg Documented By: EUGENIO Magnesium Hydroxide (Milk Of Magnesia 30 Ml Oral.Susp) 30 ml PO DAILY PRN PRN Reason: Constipation Melatonin (Melatonin 3 Mg Tablet) 6 mg PO BEDTIME PRN PRN Reason: Insomnia Sodium Chloride (0.9 % Sodium Chloride Flush 3 Ml Syringe) 3 ml IVFLUSH QSHIFT [facility] Last Admin: 12/20/24 08:07 Dose: 3 ml Documented By: EUGENIO Valsartan (Valsartan 80 Mg Tablet) 80 mg PO DAILY [facility]; Protocol Last Admin: 12/20/24 09:11 Dose: 80 mg Documented By: DHIRAJ Labs 12/20/24 06:34 12/20/24 06:34 Labs: Laboratory Results - last 24 hr 12/20/24 06:34 MCV 87.1 MCH 29.0 MCHC 33.2 RDW 12.7 Plt Count 191 MPV 10.4 Immature Gran % (Auto) 0.5 H Neut % (Auto) 85.3 H Lymph % (Auto) 5.2 L [place] % (Auto) 7.6 Eos % (Auto) 1.1 Baso % (Auto) 0.3 Lymph # (Auto) 0.6 L [place] # (Auto) 0.9 Eos # (Auto) 0.1 Baso # (Auto) 0.0 Abs Immat Gran (auto) 0.06 H Absolute Neuts (auto) 9.7 H Absolute Nucleated RBC 0.000 Nucleated RBC % (auto) 0.0 Anion Gap 11 L Estim Creat Clear Calc 98.6 Estimated GFR > 60 Random Glucose 107 Calcium 8.4 Microbiology Microbiology Results: Microbiology 12/19/24 08:56 Blood Culture - Preliminary Blood - Venous No growth after 24 hours. 12/19/24 08:56 Blood Culture - Preliminary Blood - Venous No growth after 24 hours. Assessment and Plan (1) Cellulitis of groin, left: Status: Acute Plan Fareed Craft is a 69 y/o man admitted with: Left groin cellulitis with abscess no sepsis Continue empiric IV antibiotic therapy with doxycycline and vancomycin. Erythema Improving with IV doxycycline, we will continue for now Seen by General surgery, plan for bedside I and D Blood cultures negative to date tick panel pending outpatient culture from November 18 seems to be superficial culture likely skin marianela although officially still pending Essential hypertension. Continue lisinopril, atenolol stop losartan as already on ACEI will start norvasc Hyperlipidemia Continue statin. DVT prophylaxis: Lovenox Code status: Full Requires ongoing inpatient stay for IV antibiotics and planned I and D Quality Stroke Does the patient have a stroke diagnosis?: No VTE Prior VTE?: No VTE Risk Level:: Medical - moderate - high VTE Device Contraindication: Treatment Not Indicated VTE Drug Contraindication: N/A - Med Ordered
[2024-12-20 11:58] VITALS: BP 138/63; PULSE 64; RESP 17; TEMP 36.9; O2SAT 98
[2024-12-20] MEDS: Lidocaine HCl 1 % 20 ML VIAL 10 ML INFILTRATI (12:17)
--- NOTE | 2024-12-20 12:34 | PM.PROC ---
Brief Operative Note Date of procedure: 12/20/24 Pre-op diagnosis: left groin abscess Post-op diagnosis: same Procedure: Patient was placed in prone frog legged position. The site of procedure was confirmed by the patient. After assuring informed consent, the skin was prepped with Betadine. 5cc 1% lidocaine was then infiltrated over the central portion of the fluctuance. An incision was made with an 11 blade measuring approximately 3 cm the same location. This was deepened into the subcutaneous tissue. A pocket was identified and a large amount of purulent fluid was evacuated. A culture was obtained. The area was then probed with a snap to ensure any loculations were broken up and the entire collection was drained. No further fluctuance was appreciated. Pressure was held with sterile gauze until hemostasis ensured. The cavity was packed with 1/4in iodoform packing and dressed with dry fluffs, abd dressing and tape. Patient tolerated the procedure well. Anesthesia: local Surgeon: Neymar Bhat Pathology: none sent Condition: stable Disposition: no change
--- NOTE | 2024-12-20 13:03 | PM.EVENT ---
Event Note Date of Service: 12/20/24 Event Note: I&D was done at bedside under local anesthesia Large amounts of pus was drained Light packing with iodoform placed Cultures taken He tolerated procedure well We will continue to follow Time Spent With Patient Time: Total time managing care of this patient today ____ minutes.
--- NOTE | 2024-12-20 14:44 | MHC.CM.PN ---
PT REPORTS HE LIVES AT HOME WITH HIS AND KIDS HE IS INDEPENDENT WITH CARE, HAS NO DME HE SAYS HE AND HIS COMPLETED STARK WITH A CALL CENTER SPECIALIST, AND HE BELIEVES A HCP WAS INCLUDED PCP: NIEVES BARRIOS DCP: HOME NO SERVICES VS WITH [facility] PRIVATE TRANSPORT
[2024-12-20 15:31] VITALS: BP 129/58; PULSE 62; RESP 18; TEMP 37.1; O2SAT 96
[2024-12-20 19:00] VITALS: BP 121/57; PULSE 63; RESP 18; TEMP 36.8; O2SAT 95
[2024-12-20 22:49] LABS: A. Phagocytphilium DNA,RT-PCR NOT DETECTED (NOT DETECTED); Babesia Microti DNA, RT-PCR NOT DETECTED (NOT DETECTED); Borrelia Miyamotoi,DNA RT-PCR NOT DETECTED (NOT DETECTED); E.Chaffeensis DNA RT-PCR NOT DETECTED (NOT DETECTED); Lyme(Borrelia ssp)DNA RT-PCR NOT DETECTED (NOT DETECTED)
[2024-12-20 23:52] VITALS: BP 134/63; PULSE 56; RESP 16; TEMP 36.1; O2SAT 96
[2024-12-21 03:40] VITALS: BP 112/56; PULSE 54; RESP 16; TEMP 36.3; O2SAT 97
[2024-12-21 07:24] VITALS: BP 141/65; PULSE 54; RESP 18; TEMP 36.6; O2SAT 96
[2024-12-21 09:08] VITALS: BP 141/65
[2024-12-21] MEDS: 0.9 % Sodium Chloride Flush 3 ML SYRINGE IVFLUSH ×4 (09:11→23:37)
--- NOTE | 2024-12-21 10:12 | P.PNGS_ITS ---
Subjective Subjective Date of Service: 12/21/24 Interval history: I did an I&D of the left groin abscess yesterday with large amounts of pus drained He feels much better Pain much improved No fever Physical Exam 2 Vital Signs: Vital Signs: Last Vital Signs Temp 97.8 F 12/21/24 07:24 Pulse 54 12/21/24 07:24 Resp 18 12/21/24 07:24 BP 141/65 H 12/21/24 09:08 Pulse Ox 96 12/21/24 07:24 O2 Del Method Room Air 12/21/24 07:24 BMI result Body Mass Index 29.6 Const: General: comfortable and no acute distress Resp: Effort & Inspection: normal respiratory effort Cardio: Rate: regular rate GI: Palpation (GI): Soft to palpation Extrem: Other: Left groin area with the I&D site with much less induration, cellulitis has improved significantly packing in place Objective Data Active Medications Acetaminophen (Acetaminophen 325 Mg Tablet) 975 mg PO Q6H PRN PRN Reason: Pain, Mild 1-3,fever,headache Last Admin: 12/19/24 19:28 Dose: 975 mg Documented By: MELVIN Atenolol (Atenolol 100 Mg Tablet) 100 mg PO DAILY [facility]; Protocol Last Admin: 12/21/24 09:08 Dose: 100 mg Documented By: ELLIOT Atorvastatin Calcium (Atorvastatin Calcium 10 Mg Tablet) 10 mg PO DAILY [facility] Last Admin: 12/21/24 09:09 Dose: 10 mg Documented By: ELLIOT Calcium Carbonate (Calcium Carbonate 750 Mg Tab.Chew) 750 mg PO Q4H PRN PRN Reason: Heartburn Enoxaparin Sodium (Enoxaparin Sodium 40 Mg/0.4 Ml Syringe) 40 mg SUBCUT Q24H [facility] Last Admin: 12/21/24 09:08 Dose: 40 mg Documented By: ELLIOT Doxycycline Hyclate 100 mg/ (Sodium Chloride) 250 mls @ 166.67 mls/hr IV Q12H [facility] Last Infusion: 12/21/24 01:38 Dose: Infused Documented By: BERNARDO Lisinopril (Lisinopril 40 Mg Tablet) 40 mg PO DAILY [facility]; Protocol Last Admin: 12/21/24 09:08 Dose: 40 mg Documented By: ELLIOT Magnesium Hydroxide (Milk Of Magnesia 30 Ml Oral.Susp) 30 ml PO DAILY PRN PRN Reason: Constipation Melatonin (Melatonin 3 Mg Tablet) 6 mg PO BEDTIME PRN PRN Reason: Insomnia Sodium Chloride (0.9 % Sodium Chloride Flush 3 Ml Syringe) 3 ml IVFLUSH QSHIFT [facility] Last Admin: 12/21/24 09:11 Dose: 3 ml Documented By: ELLIOT Labs 12/20/24 06:34 12/20/24 06:34 Labs: Laboratory Results - last 24 hr 12/19/24 12:48 A.phagocytophil DNA PCR NOT DETECTED Babesia microti DNA PCR NOT DETECTED Borrelia sp DNA (PCR) NOT DETECTED Borrelia miyamotoi (PCR) NOT DETECTED E.chaffeensis DNA (PCR) NOT DETECTED Tick-borne Disease PCR SEE NOTE Microbiology Microbiology Results: Microbiology 12/20/24 12:30 Gram Stain - Final Groin Routine Culture - Preliminary Culture in progress. 12/19/24 08:56 Blood Culture - Preliminary Blood - Venous No growth after 24 hours. 12/19/24 08:56 Blood Culture - Preliminary Blood - Venous No growth after 24 hours. Procedures Date of Service Date of Service: 12/21/24 Progress Note: A&P Assessment and plan (1) Abscess of groin, left: Status: Acute Assessment and Plan: I&D done yesterday with large amounts of pus I withdrew the packing and a little bit today Dressings changed Continue IV antibiotics Follow up on cultures We will follow Improving well - much less induration Time Spent With Patient Time: Total time managing care of this patient today ____ minutes. Quality Stroke Does the patient have a stroke diagnosis?: No VTE Prior VTE?: No VTE Risk Level:: Medical - moderate - high VTE Device Contraindication: Treatment Not Indicated VTE Drug Contraindication: N/A - Med Ordered
[2024-12-21 12:00] VITALS: BP 126/67; PULSE 50; RESP 16; TEMP 36.1; O2SAT 95
[2024-12-21 15:06] VITALS: BP 134/63; PULSE 55; RESP 18; TEMP 36.4; O2SAT 95
--- NOTE | 2024-12-21 15:22 | P.PNIM_ITS ---
Subjective Subjective Date of Service: 12/21/24 Interval History: seen and examined this morning follow up for groin cellulitis/abscess Improving No fever, no chills Constitutional Constitutional: Denies chills and Denies fever(s) Cardiovascular Cardiovascular: Denies chest pain, Denies palpitations and Denies dyspnea Respiratory Respiratory: Denies cough and Denies dyspnea Gastrointestinal Gastrointestinal: Denies abdominal pain, Denies diarrhea, Denies nausea and Denies vomiting Endocrine Endocrine: Denies palpitations Physical Exam 2 Vital Signs: Vital Signs: Last Vital Signs Temp 97.6 F 12/21/24 15:06 Pulse 55 12/21/24 15:06 Resp 18 12/21/24 15:06 BP 134/63 12/21/24 15:06 Pulse Ox 95 12/21/24 15:06 O2 Del Method Room Air 12/21/24 15:06 BMI result Body Mass Index 29.6 Const: General: cooperative, comfortable, no acute distress, alert and awake Nutritional Appearance: average body habitus Orientation/consciousness: p atient oriented x3 Resp: Effort & Inspection: normal respiratory effort, able to speak in complete sentences, no respiratory distress and no use of accessory muscles Cardio: Rate: regular rate GI: Inspection: No distended Palpation (GI): Soft to palpation and nontender Skin: Other: left groin resolving erythema, induration improving, no fluctuance Neuro: General: patient oriented x3, moves all extremities and CN's II-XI intact bilaterally Objective Data Active Medications Acetaminophen (Acetaminophen 325 Mg Tablet) 975 mg PO Q6H PRN PRN Reason: Pain, Mild 1-3,fever,headache Last Admin: 12/19/24 19:28 Dose: 975 mg Documented By: MELVIN Atenolol (Atenolol 100 Mg Tablet) 100 mg PO DAILY [facility]; Protocol Last Admin: 12/21/24 09:08 Dose: 100 mg Documented By: ELLIOT Atorvastatin Calcium (Atorvastatin Calcium 10 Mg Tablet) 10 mg PO DAILY [facility] Last Admin: 12/21/24 09:09 Dose: 10 mg Documented By: ELLIOT Calcium Carbonate (Calcium Carbonate 750 Mg Tab.Chew) 750 mg PO Q4H PRN PRN Reason: Heartburn Enoxaparin Sodium (Enoxaparin Sodium 40 Mg/0.4 Ml Syringe) 40 mg SUBCUT Q24H [facility] Last Admin: 12/21/24 09:08 Dose: 40 mg Documented By: ELLIOT Doxycycline Hyclate 100 mg/ (Sodium Chloride) 250 mls @ 166.67 mls/hr IV Q12H [facility] Last Infusion: 12/21/24 13:34 Dose: Infused Documented By: ELLIOT Lisinopril (Lisinopril 40 Mg Tablet) 40 mg PO DAILY [facility]; Protocol Last Admin: 12/21/24 09:08 Dose: 40 mg Documented By: ELLIOT Magnesium Hydroxide (Milk Of Magnesia 30 Ml Oral.Susp) 30 ml PO DAILY PRN PRN Reason: Constipation Melatonin (Melatonin 3 Mg Tablet) 6 mg PO BEDTIME PRN PRN Reason: Insomnia Sodium Chloride (0.9 % Sodium Chloride Flush 3 Ml Syringe) 3 ml IVFLUSH QSHIFT [facility] Last Admin: 12/21/24 09:11 Dose: 3 ml Documented By: ELLIOT Labs 12/20/24 06:34 12/20/24 06:34 Labs: Laboratory Results - last 24 hr 12/19/24 12:48 A.phagocytophil DNA PCR NOT DETECTED Babesia microti DNA PCR NOT DETECTED Borrelia sp DNA (PCR) NOT DETECTED Borrelia miyamotoi (PCR) NOT DETECTED E.chaffeensis DNA (PCR) NOT DETECTED Tick-borne Disease PCR SEE NOTE Microbiology Microbiology Results: Microbiology 12/19/24 08:56 Blood Culture - Preliminary Blood - Venous No growth after 48 hours. 12/19/24 08:56 Blood Culture - Preliminary Blood - Venous No growth after 48 hours. 12/20/24 12:30 Gram Stain - Final Groin Routine Culture - Preliminary Culture in progress. Assessment and Plan (1) Abscess of groin, left: Status: Acute (2) Cellulitis of groin, left: Status: Acute Plan Fareed Craft is a 69 y/o man admitted with: Left groin cellulitis with abscess no sepsis Erythema Improving with IV doxycycline, we will continue for now Seen by General surgery, s/p bedside I&D- wound culture pending Blood cultures negative to date Essential hypertension. Continue lisinopril, atenolol stop losartan as already on ACEI planned to start norvasc but bp stable without third agent Hyperlipidemia Continue statin. DVT prophylaxis: Lovenox Code status: Full Requires ongoing inpatient stay for IV antibiotics Quality Stroke Does the patient have a stroke diagnosis?: No VTE Prior VTE?: No VTE Risk Level:: Medical - moderate - high VTE Device Contraindication: Treatment Not Indicated VTE Drug Contraindication: N/A - Med Ordered
[2024-12-21 18:57] VITALS: BP 144/68; PULSE 56; RESP 18; TEMP 36.5; O2SAT 97
[2024-12-22] VITALS: BP 149/67; PULSE 54; RESP 20; TEMP 36.9; O2SAT 96
[2024-12-22 03:25] VITALS: BP 118/59; PULSE 52; RESP 18; TEMP 36.7; O2SAT 95
[2024-12-22 07:28] VITALS: BP 123/70; PULSE 53; RESP 18; TEMP 36.6; O2SAT 97
[2024-12-22 08:29] VITALS: BP 123/70
[2024-12-22 08:29] LABS: MANUAL DIFF FLAG NO
[2024-12-22 08:30] VITALS: BP 123/70
[2024-12-22] MEDS: 0.9 % Sodium Chloride Flush 3 ML SYRINGE IVFLUSH (08:30)
[2024-12-22 08:32] LABS: Hematocrit 34.5 % (42.0-52.0); Hemoglobin 11.8 g/dl (14.0-18.0); Imm Gran Abs Auto 0.03 X10*3/uL (0.00-0.03); Imm Gran Pct Auto 0.5 % (0.0-0.4); Lymphocytes Absolute Auto 0.8 X10*3/uL (1.2-4.9); Mean Corpuscular HGB Conc 34.2 g/dl (31.0-36.0); Mean Corpuscular Hemoglobin 29.4 pg (27.0-33.0); Mean Corpuscular Volume 85.8 fL (80.0-98.0); NRBC Abs Auto 0.000 X10*3/uL (0.0-0.012); NRBC Pct Auto 0.0 /100WBC (0.0-0.2); Platelet Count 228 X10*3/uL (160-400); Red Blood Count 4.02 X10*6/uL (4.60-5.80); White Blood Count 5.7 X10*3/uL (4.8-10.8)
--- NOTE | 2024-12-22 09:40 | PM.PNGS ---
Subjective Subjective Date of Service: 12/22/24 Interval history: Feels well this morning He says his left groin feels much better and has been well pain He feels that he is ready to be discharged Physical Exam Vital Signs: Vital Signs: Last Vital Signs Temp 97.8 F 12/22/24 07:28 Pulse 53 12/22/24 07:28 Resp 18 12/22/24 07:28 BP 123/70 12/22/24 08:30 Pulse Ox 97 12/22/24 07:28 O2 Del Method Room Air 12/22/24 07:28 BMI result Body Mass Index 29.6 Const: Other: Looks well General: comfortable and no acute distress Resp: Effort & Inspection: normal respiratory effort Cardio: Rate: regular rate Extrem: Other: Left groin area with much less induration and redness, no fluctuance, no tenderness Packing removed, Objective Data Active Medications Acetaminophen (Acetaminophen 325 Mg Tablet) 975 mg PO Q6H PRN PRN Reason: Pain, Mild 1-3,fever,headache Last Admin: 12/19/24 19:28 Dose: 975 mg Documented By: MELVIN Atenolol (Atenolol 100 Mg Tablet) 100 mg PO DAILY [facility]; Protocol Last Admin: 12/22/24 08:29 Dose: 100 mg Documented By: ELLIOT Atorvastatin Calcium (Atorvastatin Calcium 10 Mg Tablet) 10 mg PO DAILY [facility] Last Admin: 12/22/24 08:29 Dose: 10 mg Documented By: ELLIOT Calcium Carbonate (Calcium Carbonate 750 Mg Tab.Chew) 750 mg PO Q4H PRN PRN Reason: Heartburn Enoxaparin Sodium (Enoxaparin Sodium 40 Mg/0.4 Ml Syringe) 40 mg SUBCUT Q24H [facility] Last Admin: 12/22/24 08:29 Dose: 40 mg Documented By: ELLIOT Doxycycline Hyclate 100 mg/ (Sodium Chloride) 250 mls @ 166.67 mls/hr IV Q12H [facility] Last Infusion: 12/22/24 01:16 Dose: Infused Documented By: FABIO Lisinopril (Lisinopril 40 Mg Tablet) 40 mg PO DAILY [facility]; Protocol Last Admin: 12/22/24 08:30 Dose: 40 mg Documented By: ELLIOT Magnesium Hydroxide (Milk Of Magnesia 30 Ml Oral.Susp) 30 ml PO DAILY PRN PRN Reason: Constipation Melatonin (Melatonin 3 Mg Tablet) 6 mg PO BEDTIME PRN PRN Reason: Insomnia Sodium Chloride (0.9 % Sodium Chloride Flush 3 Ml Syringe) 3 ml IVFLUSH QSHIFT [facility] Last Admin: 12/22/24 08:30 Dose: 3 ml Documented By: ELLIOT Labs 12/22/24 08:25 12/20/24 06:34 Labs: Laboratory Results - last 24 hr 12/22/24 08:25 MCV 85.8 MCH 29.4 MCHC 34.2 RDW 12.6 Plt Count 228 MPV 9.8 Immature Gran % (Auto) 0.5 H Neut % (Auto) 73.0 Lymph % (Auto) 13.6 L [place] % (Auto) 7.8 Eos % (Auto) 4.6 H Baso % (Auto) 0.5 Lymph # (Auto) 0.8 L [place] # (Auto) 0.4 Eos # (Auto) 0.3 Baso # (Auto) 0.0 Abs Immat Gran (auto) 0.03 Absolute Neuts (auto) 4.1 Absolute Nucleated RBC 0.000 Nucleated RBC % (auto) 0.0 Microbiology Microbiology Results: Microbiology 12/19/24 08:56 Blood Culture - Preliminary Blood - Venous No growth after 48 hours. 12/19/24 08:56 Blood Culture - Preliminary Blood - Venous No growth after 48 hours. 12/20/24 12:30 Gram Stain - Final Groin Routine Culture - Preliminary Culture in progress. Procedures Date of Service Date of Service: 12/22/24 Progress Note: A&P Assessment and plan (1) Abscess of groin, left: Status: Acute Assessment and Plan: I&D had been done with large amounts of pus I removed the packing Dressings changed Follow up on cultures He can be discharged on oral antibiotics depending on cultures I instructed him on dry dressings daily with gauze Time Spent With Patient Time: Total time managing care of this patient today ____ minutes. Quality Stroke Does the patient have a stroke diagnosis?: No VTE Prior VTE?: No VTE Risk Level:: Medical - moderate - high VTE Device Contraindication: Treatment Not Indicated VTE Drug Contraindication: N/A - Med Ordered
--- NOTE | 2024-12-22 10:41 | P.DS_ITS ---
DS: Providers Provider Date of Service: 12/22/24 Date of admission: 12/19/24 11:12 Date of discharge: 12/22/24 Primary care physician: Rusty Shaw MD Consults: 12/20/24 09:03 Consult to Wound Care Routine Reason for consultation: Lt groin cellulitis 12/20/24 10:57 Consult to General Surgery Routine Consulting Provider: [facility] [place] General Surgeons Reason for consultation: right groin cellulitis; ?abscess Has provider been notified: No [facility]: Jordyn Spencer DS: Diagnosis Discharge Diagnosis (1) Abscess of groin, left: Status: Acute DS: Summary Hospital Course Hospital Course: From H&P on the day of admission Fareed Craft is a 69 y/o man past medical history significant for hyperlipidemia and essential hypertension presents to the emergency department complaining of left groin pain and redness. He noticed this 4 days ago. He also reported suggestive fever and chills. The area is now open and spontaneously and mild quantity of fluids. He did not report headache, dizziness, palpitations, chest pain, shortness on breath, nausea vomiting or diarrhea. He denied tobacco smoking, alcohol abuse or illicit drug use. He has a history of tick bite long time ago but not recently. He received a prescription for doxycycline recently. A culture of the left thigh lesion was obtained: Romero stain showed 3+ polys 2+, epithelial cells, 4+ Gram-negative rods and 2+ Gram-positive cocci. In the ED, he was found to have stable vital signs. Blood workup is remarkable for leukocytosis, 11.6. There is no lactic acidosis. Hemoglobin 12.2 and platelets 197. There are no electrolyte imbalances. Anion gap is 11 and BUN 22. AST is are normal except for mildly elevated total bilirubin. Abdominal pelvis CT scan with IV contrast showed finding consistent with cellulitis involving the anteromedial proximal left thigh without loculated fluid collection or soft tissue gas. Left groin cellulitis with abscess no sepsis. erythema has improved significantly. Patient was seen by General surgery and underwent bedside I and D. Erythema and induration significantly better. no fluctuance on exam. Wound culture growing mixed skin marianela, therefor will discharge with course of oral doxycycline and levofloxacin given PCN allergy. Blood cultures negative to date. Packing removed. Dry dressings daily with gauze. Essential hypertension. Continue lisinopril, atenolol. stop losartan as already on ACEI. Blood pressure has been stable. Time Attestation Discharge Coordination Time (in mins): 32 Quality: Safe Use of Opioids Does Pt have an Active Cancer Diagnosis on the Problem List?: No Quality: Stroke Does the patient have a stroke diagnosis?: No Physical Exam Vital Signs: Vital Signs: Last Vital Signs Temp 97.8 F 12/22/24 07:28 Pulse 53 12/22/24 07:28 Resp 18 12/22/24 07:28 BP 123/70 12/22/24 08:30 Pulse Ox 97 12/22/24 07:28 O2 Del Method Room Air 12/22/24 07:28 BMI result Body Mass Index 29.6 Const: General: cooperative, comfortable, no acute distress, alert and awake Skin: Other: left groin with significant improvement in erythema and induration. No fluctuance DS: Data Data Completed and Pending Labs on day of discharge: Laboratory Results - last 24 hr 12/22/24 08:25 WBC 5.7 RBC 4.02 L Hgb 11.8 L Hct 34.5 L MCV 85.8 MCH 29.4 MCHC 34.2 RDW 12.6 Plt Count 228 MPV 9.8 Immature Gran % (Auto) 0.5 H Neut % (Auto) 73.0 Lymph % (Auto) 13.6 L [place] % (Auto) 7.8 Eos % (Auto) 4.6 H Baso % (Auto) 0.5 Lymph # (Auto) 0.8 L [place] # (Auto) 0.4 Eos # (Auto) 0.3 Baso # (Auto) 0.0 Abs Immat Gran (auto) 0.03 Absolute Neuts (auto) 4.1 Absolute Nucleated RBC 0.000 Nucleated RBC % (auto) 0.0 Preliminary micro results at discharge 12/19/24 08:56 Blood Culture - Preliminary Blood - Venous No growth after 48 hours. 12/19/24 08:56 Blood Culture - Preliminary Blood - Venous No growth after 48 hours. Discharge Plan Discharge Anticipated Discharge Date/Time: 12/22/24 10:55 Patient Disposition: Home, Self-Care Discharge Diagnosis: cellulitis and abscess of left groin Referrals: Rusty Shaw MD [Primary Care Provider, Internal Medicine] - 1 Week Discharge Medications: New doxycycline monohydrate 100 mg tablet 100 mg PO BID 5 Days Qty: 10 0RF levofloxacin 500 mg tablet 500 mg PO Q24H 5 Days Qty: 5 0RF Continued atenolol 100 mg tablet 100 mg PO DAILY simvastatin 20 mg tablet 20 mg PO BEDTIME lisinopril 40 mg tablet 40 mg PO DAILY Tart Li [id number] mg Capsule 1 cap PO BEDTIME krill oil 500 mg Capsule 500 mg PO DAILY Discontinued valsartan 80 mg tablet 80 mg PO DAILY doxycycline hyclate 100 mg tablet 100 mg PO BID Discharge Orders: Discharge Order (Routine); Ordered 12/22/24 Ordered By: Jordyn Spencer Activity on Discharge: As tolerated Stand Alone Forms: Patient Portal Discharge page Print Language: Luxembourger Activity Restrictions/Additional Instructions: Dry dressings daily with gauze and Medipore tape Okay to shower and dry the area of the I&D site right away Care Plan Goals: See below Health Concerns: Left groin cellulitis with abscess -status post incision and drainage Plan of Treatment: Complete 5 more days of oral antibiotics Daily dressing changes as above for blood presssure valsartan stopped and blood pressure has been stable Assessment: See discharge summary
--- NOTE | 2024-12-22 11:11 | MHC.CM.PN ---
PT CLEARED TO DC HOME TODAY WITH NO SERVICES VIA PRIVATE TRANSPORT
[2024-12-22 12:00] VITALS: BP 148/72; PULSE 55; RESP 16; TEMP 36.2; O2SAT 97
== END 2024-12-22 12:53 | disposition home or self-care (01) | DRG 364 ==
LOC: HO.ED 11:13 → HO.EDOVER 11:44 → HO.S3 12-20 07:51
PROVIDERS: Registered Nurse Emergency; Admitting Provider Internal Medicine; Emergency Provider Emergency Medicine; PCP Internal Medicine Medical Oncology; Visit Provider Physician Assistant Medical
DX: L02.214 Cutaneous abscess of groin (principal); I96 Gangrene, not elsewhere classified; L03.314 Cellulitis of groin; E78.5 Hyperlipidemia, unspecified; I10 Essential (primary) hypertension; Z79.899 Other long term (current) drug therapy
CPT/HCPCS: 36415; 74177; 80048; 80053; 83605; 85025; 87040; 87070; 87205; 87468; 87469; 87478; 87484; 87798; 99285; J1271; J1650; J2003; J2270; J3373; Q9967

== ENCOUNTER → 2024-12-19 08:17 | Outpatient (BNV) | payer OTHER, SELFPAY | PROVIDERS: Emergency Provider Emergency Medicine; PCP Internal Medicine Medical Oncology; Visit Provider Radiology Diagnostic Radiology | DX: L03.116 Cellulitis of left lower limb (principal) | CPT/HCPCS: 74177 ==

== ENCOUNTER → 2024-12-19 11:12 | Outpatient (BNV) | payer OTHER, SELFPAY | PROVIDERS: Admitting Provider Internal Medicine; Emergency Provider Emergency Medicine; PCP Internal Medicine Medical Oncology; Visit Provider Physician Assistant Surgical | DX: L02.214 Cutaneous abscess of groin (principal) | CPT/HCPCS: 10060; 99024; 99222; 99499 ==

== ENCOUNTER → 2024-12-19 11:12 | Outpatient (BNV) | payer OTHER, SELFPAY | PROVIDERS: Admitting Provider Internal Medicine; Emergency Provider Emergency Medicine; PCP Internal Medicine Medical Oncology; Visit Provider Internal Medicine | DX: L03.314 Cellulitis of groin (principal) | CPT/HCPCS: 99223; 99232 ==

== ENCOUNTER 2024-12-27 14:05 | Outpatient (REF) | payer OTHER, SELFPAY | END 2024-12-27 14:06 | disposition home or self-care (01) | LOC: HO.LNP 14:05 | PROVIDERS: Visit Provider Internal Medicine Medical Oncology | DX: L02.214 Cutaneous abscess of groin (principal) | CPT/HCPCS: 87070; 87205 ==

== ENCOUNTER 2024-12-27 14:05 | Outpatient (AMB) | payer OTHER, SELFPAY ==
--- OUTSIDE RECORDS SUMMARY | 2024-12-18 07:00 | XMS_ITS ---
Author Organization Rusty Shaw III, MD Address [address] [place] [address] Care Team Providers Care Encoding Clerk Name Role Phone Rusty Shaw Primary Care Provider [phone] Allergies Allergen (clinical drug ingredient) Drug/Non Drug Allergy documented on EMR Reaction Allergy Type Onset Date Status Penicillin rash Drug Allergy Active Septra rash Drug Allergy Active Results Component Value Reference Range Notes Routine Culture Reviewed date:12/21/2024 03:12:08 PM Interpretation: Performing Lab:[facility], [address] [place] [id number] Notes/Report: ABCESS OF GROIN,LEFT Routine Culture Report - external Routine Culture 2+ Mixed marianela O:STRAGA Strep agalactiae (Grp B) Routine Culture Quant Org ID Routine Culture 2+ Routine Culture Susc N/A Routine Culture Susceptibility not r outinely performed on this isolate. REASON FOR VISIT Abscess left groin, Cellulitis left groin, Hyperlipidemia, Hypertension, Gout, Hearing loss, Benignprostatic Medications Medication SIG (Take, Route, Frequency, Duration) Notes Start Date End Date Status Lisinopril 40 MG TAKE 1 TABLET BY ZAINAB DAILY Active Clobetasol Propionate 0.05 % 1 [...] Tart Li Advanced - Orally Active MegaRed [employer] [place] [employer]-3 Krill Oil 500 MG Orally Active Triamcinolone [...] nonsmoker Additional Findings: Tobacco Non-User Aggressive non-smoker Problems Problem Type SNOMED Code ICD Code Onset Dates Problem Status W/U Status Risk Notes Problem [id number] Abscess of groin, left (L02.214) Active confirmed The abscess was deep in the tissue on CT scan. Incision and drainage was done in the operating room. All cultures failed to show an organism. A new cardiac murmur was noted. He was discharged on levofloxacin and doxycycline which I have continued. The wound is healing well. He will be seen in followup in 4 days. Vital Signs Temperature 99.0 degrees Fahrenheit 12/19/19 25 Blood pressure systolic 150 mm Hg 12/19/19 25 Blood pressure diastolic 80 mm Hg 025 Heart Rate 56 /min 12/18/2024 Height 70 in 12/18/2024 Weight 213 lbs 12/18/2024 BMI 30.56 kg/m2 12/18/2024 Encounters Encounter Location Date Provider Diagnosis Rusty Shaw III, MD [address] [place] [address] [place] [address] 12/18/2024 Rusty Shaw Mixed hyperlipidemia E78.2 ; Abscess of groin, left L02.214 ; History of gout Z87.39 ; Essential hypertension I10 ; Osteoarthritis of left knee, unspecified osteoarthritis type M17.12 ; BPH (benign prostatic hyperplasia) N40.0 ; Hearing loss H91.90 and Obesity (BMI 30.0-34.9) E66.9 Assessments Encounter Date Diagnosis (ICD Code) Assessment Notes Treat ment Notes Treatment Clinical Notes 12/18/2024 Mixed hyperlipidemia (ICD-10 - E78.2) Comprehensive blood work with fasting lipids are being on periodically. 12/18/2024 Abscess of groin, left (ICD-10 - L02.214) Pus was expressed and cultured. Doxycycline was prescribed. He will go to the emergency room for incision and drainage. 12/18/2024 History of gout (ICD-10 - Z87.39) He is not taking his allopurinol. He says he has not done so for several months. The uric acid level is normal. He has had no attacks of gout. 12/18/2024 Essential hypertension (ICD-10 - I10) His blood pressure Is 150/80. I discussed this with him. This is likely due to the acute infection and will be observed at this time. 12/18/2024 Osteoarthritis of left knee, unspecified osteoarthritis type (ICD-10 - M17.12) The pain in the knee has improved since his last visit and is minor at this time. 12/18/2024 BPH (benign prostati c hyperplasia) (ICD-10 - N40.0) He arises from sleep about once a night. We discussed modifications he could make to his lifestyle that would reduce nocturia. 12/18/2024 Hearing loss (ICD-10 - H91.90) His hearing loss is stable. At his request. He was referred to audiology for evaluation of possible amplification. 12/18/2024 Obesity (BMI 30.0-34.9) (ICD-10 - E66.9) He has not gained weight since his last visit. We discussed nutrition at length. He has a strategies for weight loss. Plan Of Treatment Medication Medication Name Sig [...] EVENING Tart Li Advanced - Orally MegaRed [employer] [employer] Krill Oil 50 0 MG Orally Triamcinolone Acetonide 0.1 % 1 applicat ion Externally Twice a day 04/17/2023 Next Appt Details Follow Up: Monday, Reason: O V Provider Name:Rusty Shaw, 12/30/2024 10:45:00 AM, [address], [place], [id number], Provider Name:Rusty Shaw, 04/24/2025 10:00:00 AM, [address] [place] [address] [address], [place], [address], Progress Notes * Fareed ARMSTRONGDOB:1955 (69 yo M)Acc No.[id number]:12/18/2024 Progress Notes Patient: Fareed GARCIA Provider: Marshall Shaw MD :1955 A ge:69 Y S ex:Male Date:12/18/2024 Address:[address] [place] [address], [id number] Subjective: * Chief Complaints: * A bscess left groinCellulitis left groinHyperlipidemiaHypertensionGoutHearing lossBenign prostatic * HPI: C OVID-19 Screening: He came to the office today for a scheduled visit to manage his medical issues. Blood pressure was slightly higher than usual. He has had no gout recently. His vision is unchanged. He has been rising from sleep once or twice a night to urinate. We discussed lifestyle modifications referred by to reduce nocturia. He has had no gout. The pain from arthritis in his left knee has improved. He complains of pain in his left groin and on inspection there is a large 6 cm infected abscess with cellulitis. A culture was obtained. He was placed on doxycycline. Arrangements were made for him to go to the emergency room for incision and drainage. Questions H ave you had any new onset fever, chills, cough, congestion, sore throat, shortness of breath, muscle aches? N o * ROS: G eneral/Constitutional: pain L eft groin. C hills d enies. F atigue?admits. F ever d enies. E NT: Decreased hearing i n both ears. R espiratory: Cough d enies. C ardiovascular: Chest pain with exertion d enies. D yspnea on exertion?denies. S hortness of breath d enies. G astrointestinal: Constipation o ccasional. D ecreased appetite d enies. D iarrhea d enies. H eartburn d enies. N ausea d enies. R ectal bleeding d enies. V omiting d enies. H ematology: bruising d enies. p etechiae d enies. S wollen glands n one have been noted. G enitourinary: Frequent urination o nce a night. M usculoskeletal: Muscle aches d enies. P ainful joints d enies. S ciatica d enies. W eakness d enies. S kin: Itching d enies. R eren d enies. S kin lesion(s)?denies. N eurologic: Difficulty speaking d enies. D izziness d enies.?Headache d enies. L ow back pain d enies. P sychiatric: Depressed mood d enies. * Medical History: * Surgical History: c olonoscopy, [facility], Dr. Carrillo 1999colonoscopy, [facility], Dr. Santos 2016Cataract surgery 07/04,08/04No history * Hospitalization/Major Diagno stic Procedure: N o history * Family History: F ather: alive 94 yrs, Diabetes mellitus, diagnosed with DM. M other: 83 yrs, Advanced dementia, hyperthyroidism. C hildren: alive. S on(s): alive. D aughter(s): alive. Siblings: . 3 brother(s) . 1 [...] T obacco Use: T obacco Use/Smoking P atient is a n onsmoker A dditional Findings: Tobacco Non-User A ggressive non-smoker H elias has been to [facility] for 35 years. They have 3 healthy children and 4 grandchildren. 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 The patient is still working and has been at the same job since 1999. He has reduced his red meat consumption. He lives with his and daughter. * Medications: T akingSimvastatin 20 MG Tablet TAKE 1 TABLET BY MOUTH DAILY IN THE EVENING Tart Li Advanced - Capsule Orally MegaRed [employer] [employer] Krill Oil 500 MG Capsule Orally Triamcinolone Acetonide 0.1 % Cream 1 application Externally Twice a day Clobetasol Propionate 0.05 % Cream 1 application Externally Twice a day Atenolol 100 MG Tablet 1 tablet Orally Once a day hydrALAZINE HCl 10 MG Tablet 1 tablet with food Orally mornings Valsartan 80 MG Tablet 1 tablet Orally Once a day Lisinopril 40 MG Tablet TAKE 1 TABLET BY MOUTH DAILY Medication List reviewed and reconciled with the patientTaking Simvastatin 20 MG Tablet TAKE 1 TABLET BY MOUTH DAILY IN THE EVENING Taking Tart Li Advanced - Capsule Orally Taking MegaRed [employer] [place] [employer] Krill Oil 500 MG Capsule Orally Taking Triamcinolone Acetonide 0.1 % Cream 1 application Externally Twice a day Taking Clobetasol Propionate 0.05 % Cream 1 application Externally Twice a day Taking Atenolol 100 MG Tablet 1 tablet Orally Once a day Taking hydrALAZINE HCl 10 MG Tablet 1 tablet with food Orally mornings Taking Valsartan 80 MG Tablet 1 tablet Orally Once a day Taking Lisinopril 40 MG Tablet TAKE 1 TABLET BY MOUTH DAILY Medication List reviewed and reconciled with the patient * Allergies: S eptra: rashPenicillin: rashno[Allergies Verified] Objective: * Vitals: H t: 70, Wt:213, BMI:30.56, BP:150/80, HR:56, Temp:99.0, Ht-cm: 177.8, Wt-k.62. * Examination: G eneral Examination: GENERAL APPEARANCE: p leasant, well nourished, well developed, in no acute distress, calm and relaxed, obese, man. HEAD: a traumatic, normocephalic. EYES: e griselda, [...] mass. RECTAL EXAM: n ot examined. MUSCULOSKELETAL: 6 cm infected abscess anterior upper left leg and left groin with large area of surrounding cellulitis. PERIPHERAL PULSES: n ormal. NEUROLOGIC: a lert and oriented, cranial nerves 2-12 grossly intact, deep tendon reflexes 2+ symmetrical, motor strength normal upper and lower extremities, sensory exam intact. PSYCH: a lert, oriented. Assessment: * Assessment: 1. A bscess of groin, left - L02.214 (Primary) N otes :Pus was expressed and cultured. Doxycycline was prescribed. He will go to the emergency room for incision and drainage. 2 . M ixed hyperlipidemia - E78.2 N otes :Comprehensive blood work with fasting lipids are being on periodically. 3 . H istory of gout - Z87.39 N otes :He is not taking his allopurinol. He says he has not done so for several months. The uric acid level is normal. He has had no attacks of gout. 4 . E ssential hypertension - I10 N otes :His blood pressure Is 150/80. I discussed this with him. This is likely due to the acute infection and will be observed at this time. 5 . O steoarthritis of left knee, unspecified osteoarthritis type - M17.12? Notes :The pain in the knee has improved since his last visit and is minor at this time. 6 . B PH (benign prostatic hyperplasia) - N40.0 N otes :He arises from sleep about once a night. We discussed modifications he could make to his lifestyle that would reduce nocturia. 7 . H earing loss - H91.90 N otes :His hearing loss is stable. At his request. He was referred to audiology for evaluation of possible amplification. 8 . O besity (BMI 30.0-34.9) - E66.9 N otes :He has not gained weight since his last visit. We discussed nutrition at length. He has a strategies for weight loss. Plan: * Treatment: Value Reference Range R outine Culture Susceptibility not routinely performed o n this isolate. - * O :STRAGA Strep agalactiae (Grp B) - 2.?Mixed hyperlipidemia? Continue Simvastatin Tablet, 20 MG, TAKE 1 TABLET BY MOUTH DAILY IN THE EVENING;?Continue TartCherry Advanced Capsule, -, Orally;?Continue MegaRed [employer] [employer] Krill Oil Capsule, 500 MG, Orally;?Continue Triamcinolone Acetonide Cream, 0.1 %, 1 application, Externally, Twice a day;?Continue Clobetasol Propionate Cream, 0.05 %, 1 application, Externally, Twice a day;?Continue At enolol Tablet, 100 MG, 1 tablet, Orally, Once a day;?Continue hydrALAZINE HCl Tablet, 10 MG, 1tablet with food, Orally, mornings;?Continue Valsartan Tablet, 80 MG, 1 tablet, Orally, Once aday;?Continue Lisinopril Tablet, 40 MG, TAKE 1 TABLET BY MOUTH DAILY;?Start Doxycycline Hyclate Capsule, 100 MG, 1 capsule, Orally, twice a day, 10 days, 20 Capsule, Refills 0.?? * Procedure Codes: * Preventive Medicine: Counseling: C are goal [...] M on (Reason: OV) * Images: * Sign off status: Completed true * Provider: Marshall Shaw MD Date: 12/18/2024 Generated for Joshua tomlinson/Justin/Merlin on: 12/27/2024 02:08 PM EDT History and Physical Notes * HPI (History of Present Illness) Category Sub-Category Detail Notes COVID-19 Screening Questions Have you had any new onset fever, chills, cough, congestion, sore throat, shortness of breath, muscle aches?: No Examination Category Sub-Category Detail Notes General Examination GENERAL APPEARANCE: pleasant , well nourished, well developed, in no acute distress, calm and relaxed, obese, man HEAD: atraumatic, normocep halic EYES: eomi, perrla, [...] BREASTS: no masses palpable b ilaterally MUSCULOSKELETAL: 6 cm infected absces s anterior upper left leg and left groin with large area of surrounding cellulitis LYMPH NODES: no enlarged lymph no diana,spleen normal RECTAL EXAM: not examined PSYCH: alert, oriented ORAL CAVITY: normal, unremarkable
--- NOTE | 2024-12-27 14:09 | MHC.OFFVIS ---
Vital Signs 12/27/24 14:10 Height 5 ft 10 in Weight 210 lb BMI 30.1 Intake Visit Reasons: check abscess of groin Intake Note: Pt states, My doctor sent me to have him look at my abscess. c/o drainage, redness, swelling Manufacturers Representative Required: No Allergies Penicillins Allergy (Verified 12/27/24 14:13) Rash sulfamethoxazole Allergy (Verified 12/27/24 14:13) Rash Medication List - Last Reconciled 12/27/24 by Martín Landry RN atenolol 100 mg PO DAILY doxycycline monohydrate 100 mg PO BID 5 days krill oil 500 mg PO DAILY levofloxacin 500 mg PO Q24H 5 days lisinopril 40 mg PO DAILY simvastatin 20 mg PO BEDTIME valsartan 80 mg PO BID vit C-s.[id number]-rfgqy sd [id number] mg (Tart Li) 1 cap PO BEDTIME HPI HPI check abscess of groin: Details: He is here for follow-up after I and D of a left groin abscess last week. He was seen by his primary care physician has referred to me again because of drainage from the I&D site He denies any fever or chills. He denies any worsening swelling or redness. [facility] Medical History Abscess of groin, left Hyperlipidemia Essential hypertension Surgical History History of incision and drainage Social History Household Members: Spouse and Children Housing: House Do you presently have visiting nurse or other home services: No Patient Tobacco Use Status: Never used Tobacco service: No Review of Systems Const Denies chills and Denies fever(s) Card Denies chest pain and Denies dyspnea Resp Denies dyspnea Physical Exam Vital Signs: BMI result Body Mass Index 30.1 Const General: comfortable and no acute distress Resp Effort & Inspection: normal respiratory effort Cardio Rate: regular rate GI Other: Left groin I&D site scanty drainage, mild residual redness and induration, no fluctuance Assessment & Plan Assessment & Plan (1) Abscess of groin, left: Code(s): L02.214 - Cutaneous abscess of groin Category: Medical Plan: This had been drained at bedside last week when he was admitted. I was able to probe the I&D site with a Q-tip. There is no recurrent abscess. There was some old blood in the area. There is need to repeat the I and D at this time. I instructed him on good wound care with dry dressings. He should complete his course of antibiotics. His cultures had grown mixed skin marianela I told him that he should come back to the office any time if there is any concern with regards to the I&D site. He was comfortable about the plan. Coding Level of Care Code Est Pt Level 2 (41714) Diagnoses Abscess of groin, left L02.214
[2024-12-27 14:10] VITALS: BMI 30.1
== END 2024-12-27 14:30 | disposition home or self-care (01) ==
LOC: HO.HGS 14:06
PROVIDERS: PCP Internal Medicine Medical Oncology; Visit Provider Surgery
DX: L02.214 Cutaneous abscess of groin (principal)
CPT/HCPCS: 99024

== ENCOUNTER → 2025-01-23 12:42 | Outpatient (REF) | payer OTHER, SELFPAY ==
--- NOTE | 2025-01-23 12:46 | CA_ITS ---
Transthoracic Echocardiogram Patient (Last, First, Middle): Fareed Craft J Gender: Male Date of : 1955 Age: 69 Procedure Date: 01/23/2025 Procedure Type: Transthoracic Echocardiogram Location: OP Height: 180. cm Weight: 93.44 kg BSA: 2.13 m2 Heart Rate: 53 bpm BP: 210 / 95 mmHg Solar Hot Water Installer: ZULEYKA Reid MD: Rusty Shaw MD Radiographer Cardiac Catheterization: Poncho Paris MD Symptoms: CARDIAC MURMUR Study Quality: Technically Difficult ECG Rhythm: Bradycardia Conclusions: - 1. Technically limited study 2. Normal LV ejection fraction of 60 65% with impaired relaxation filling pattern 3. Calcific aortic valve changes noted with normal cardiac valvular Dopplers 4. Normal RV systolic pressure 5. No gross pericardial effusion Findings Left Ventricle Normal left ventricular size, thickness, and systolic function. The visually estimated ejection fraction is between 60-65%. Spectral Doppler is indicative of an impaired relaxation filling pattern. E/E prime ratio is between 8 and 15 consistent with indeterminate filling pressures. Right Ventricle The right ventricle was not well visualized. Atria The left atrium is likely dilated. Interatrial shunt cannot be excluded. The right atrium was not well visualized. Aortic Valve The aortic valve was not well visualized. There is mild calcification of the aortic valve. There is no aortic valve stenosis. There is no aortic valve regurgitation. Mitral Valve Likely normal mitral valve structure and function. There is trace mitral valve regurgitation. There is no mitral valve stenosis. Pulmonic Valve The pulmonic valve was not well visualized. Tricuspid Valve Likely normal tricuspid valve structure and function. There is trace tricuspid valve regurgitation. The right ventricular systolic pressure is normal. The right ventricular systolic pressure is 22 mmHg. Normal right atrial pressure. There is no evidence of pulmonary hypertension. Great Vessels The aorta was not well visualized. The pulmonary artery was not well visualized. There is no dilatation of the ascending aorta measuring 3.00 cm. Venous The inferior vena cava is normal in size and collapses greater than 50% with inspiration. Pericardium/Pleural There is no evidence of pericardial effusion. Prior Study Comparison No prior study available for comparison. Measurements 2D Linear Measurements IVSd: 1.02 0.6-0.9/0.6-1.0 cm LVIDd: 3.99 3.9-5.3/4.2-5.9 cm LVIDd Index: 1.87 2.4-3.2/2.2-3.1 cm/m2 LVIDs: 3.07 2.0-3.6 cm LVPWd: 1.07 0.7-1.1 cm LA Diam: 3.80 2.7-3.8/3.0-4.0 cm LAIDs Index: 1.78 1.5-2.3 cm/m2 LV Mass: 167.68 67-162/88-224 g LV Mass Index: 78.72 43-95/49-115 g/m2 LVOT Diam: 2.30 3.0+(-)1.3 cm 2D Systolic Function EF 4C: 59.10 >55% EF 2C: 67.60 >55% EF BiP: 63.50 >55% Mitral Valve MV Pk E: 0.81 MV PK A: 0.84 MV Decel Time: 249.00 E/A: 1.00 E'Lateral: 7.62 E'Medial: 8.92 E/E' Med: 9.10 E/E' Lat: 10.60 PHT: 73.00 MVA PHT: 3.01 Decel Gray: 3.26 Aortic Valve AoV Pk Mike: 1.67 AoV Mn Mike: 1.14 AoV VTI: 0.40 AoV Pk Grad: 11.00 Aov Mn Grad: 6.00 KARLEE Cont.VTI: 2.79 LVOT LVOT Pk Mike: 1.20 LVOT Mn Mike: 0.79 LVOT VTI: 0.27 LVOT Pk Grad: 6.00 LVOT Mn Grad: 3.00 LVOT Diam: 2.30 LVOT Area: 4.15 Diastolic Function MV Pk E: 0.81 MV Pk A: 0.84 E/A: 1.00 E'Medial: 8.92 E/E' Med: 9.10 E' Laterial: 7.62 E/E' Lat: 10.60 Right Ventricle TAPSE (mm): 35.50 TVS' Mike: 12.20 Tricuspid Valve TR Pk Mike: 2.16 TR Pk Grad: 19.00 RA Press: 3.00 RVSP: 22.00 Great Vessels Aorta Sinus of Valsalva: 3.40 2.0-3.5 cm Ao Asc: 3.00 2.1-3.4 cm Ao Arch: 2.90 Pulmonary Valve PV Pk Mike: 1.13 Peak PV Grad: 5.00 Updated in Other Vendor System with Status of Final Poncho Paris MD electronically signed on 01/23/2025 4:15:22 PM with status of Final
== END ==
LOC: HO.CARD 12:42
PROVIDERS: PCP Internal Medicine Medical Oncology; Visit Provider Internal Medicine Medical Oncology
DX: R01.1 Cardiac murmur, unspecified (principal)
CPT/HCPCS: 93306

== ENCOUNTER → 2025-01-23 12:46 | Outpatient (BNV) | payer OTHER, SELFPAY | PROVIDERS: PCP Internal Medicine Medical Oncology; Visit Provider Internal Medicine Cardiovascular Disease | DX: I35.8 Other nonrheumatic aortic valve disorders (principal) | CPT/HCPCS: 93306 ==